=== PATIENT | male | born 1950 | race Caucasian/White ===

== ENCOUNTER 2017-12-23 05:50 | Inpatient (IN) | payer MEDICARE, BC ==
[2017-12-23] MEDS ORDERED: Albuterol/Ipratropium 3.0-0.5 MG/3 ML Neb Soln NEB ONE (06:00)
[2017-12-23] MEDS ORDERED: Sodium Chloride 0.9% 10 ML Syringe FLUSH PRN (06:04)
[2017-12-23] MEDS ORDERED: Ciprofloxacin in D5W 400 MG in Premix Bag 1 BAG IV ONE ×2 (06:04)
[2017-12-23] MEDS ORDERED: Piperacillin/Tazobactam 4.5 GM in Sodium Chloride 0.9% 100 ML IV ONE (06:04)
[2017-12-23] MEDS ORDERED: methylPREDNISolone Sodium Succinate 125 MG/2 ML SDV IVPUSH ONE (06:11)
[2017-12-23] MEDS ORDERED: Sodium Chloride 0.9% 1,000 ML IV SCH (06:15)
[2017-12-23 06:55] LABS: CHLORIDE,CL 101 mmol/L (98-107); SODIUM,NA 135 mmol/L (136-145)
--- NOTE | 2017-12-23 06:59 | EDM.PDOC ---
ED HPI GENERAL MEDICAL PROBLEM - General Chief Complaint: Respiratory Problem Stated Complaint: Coughing, SOB, fever Time Seen by Provider: 12/23/17 06:00 Source of Information: Reports: Patient, Family History Limitations: Reports: No Limitations - History of Present Illness INITIAL COMMENTS - FREE TEXT/NARRATIVE: Please use ER note for admission H and P Patient presents with complaints of coughing all night and increasing coughing and shortness of breath over the last couple of days. He states he saw Dr. Fely Guillen on Thursday with complaints of a sore right foot. He was told this was likely gout. He has had fevers, chills, coughing. He denies chest pain. No headache, change in LOC, no abdominal pain. His foot has had increased swelling. He is producing sputum with his cough. He states he is not getting better. Onset: Gradual Duration: Getting Worse Location: Reports: Chest Quality: Reports: Ache Severity: Moderate Improves with: Reports: None Associated Symptoms: Reports: Cough, cough w sputum, Fever/Chills, Shortness of Breath - Related Data Allergies Allergy/AdvReac Type Severity Reaction Status Date / Time Penicillins Allergy Unknown Hives Verified 10/12/17 08:33 lisinopril AdvReac Unknown Cough Verified 10/12/17 08:33 Home Meds: Home Meds Losartan Potassium 25 mg PO DAILY 10/20/14 [History] Albuterol [IJD: Ventolin HFA] 1 - 2 puff INH Q4H PRN 05/20/16 [History] Metoprolol Succinate [Toprol XL 100mg] 100 mg PO DAILY 05/20/16 [History] Furosemide [Lasix] 20 mg PO DAILY #30 tablet 05/22/16 [Rx] Omeprazole Magnesium [Prilosec Otc] 20 mg PO DAILY 10/12/17 [History] Tiotropium Br/Olodaterol HCl [Stiolto Respimat Inhal [place]] 2 puff PO DAILY [History] Warfarin [Coumadin] 7.5 - 10 mg PO ASDIRECTED 10/12/17 [History] Albuterol [IJD: Albuterol] 2.5 mg NEB Q4HRRT PRN #30 nebule 10/14/17 [Rx] Azithromycin [Zithromax] 500 mg PO DAILY #3 tablet 12/20/17 [Rx] Cefuroxime [Ceftin] 250 mg PO BID #6 tablet 10/14/17 [Rx] Magnesium Oxide 400 mg PO BID #60 tablet 10/14/17 [Rx] Warfarin [Coumadin] 7.5 mg PO BEDTIME #30 tablet 10/14/17 [Rx] guaiFENesin [Mucinex] 600 mg PO BID #30 tab.er 10/14/17 [Rx] predniSONE 20 mg PO DAILY #5 tablet 10/14/17 [Rx] Past Medical History HEENT History: Reports: Hard of Hearing, Impaired Vision Other HEENT History: Wears hearing aides and glasses Cardiovascular History: Reports: Afib, Cardiomyopathy, Heart Failure, Heart Valve Replacement, Hypertension, Pulmonary Hypertension Respiratory History: Reports: COPD, SOB Gastrointestinal History: Reports: GI Bleed Genitourinary History: Reports: Acute Renal Failure Musculoskeletal History: Reports: Arthritis Psychiatric History: Reports: None Hematologic History: Reports: Other (See Below) Other Hematologic History: History of Leukemia with stem cell transplant in 2008 Oncologic (Cancer) History: Reports: Leukemia - Infectious Disease History Infectious Disease History: Reports: Chicken Pox - Past Surgical History Head Surgeries/Procedures: Reports: None Musculoskeletal Surgical History: Reports: None Oncologic Surgical History: Reports: None Social & Family History - Family History Family Medical History: Noncontributory - Tobacco Use Smoking Status *Q: Former Smoker Years of Tobacco use: 18 Packs/Tins Daily: 1 Used Tobacco, but Quit: Yes Month Tobacco Last Used: 1992 Second Hand Smoke Exposure: No - Caffeine Use Caffeine Use: Reports: Coffee, Soda - Alcohol Use Days Per Week of Alcohol Use: 7 Number of Drinks Per Day: 1 Total Drinks Per Week: 7 - Recreational Drug Use Recreational Drug Use: No Drug Use in Last 12 Months: No ED ROS GENERAL - Review of Systems Review Of Systems: See Below Constitutional: Reports: Fever, Chills HEENT: Reports: No Symptoms Respiratory: Reports: Shortness of Breath, Wheezing, Cough, Sputum Cardiovascular: Reports: Dyspnea on Exertion, Edema Endocrine: Reports: No Symptoms GI/Abdominal: Reports: No Symptoms : Reports: No Symptoms Musculoskeletal: Reports: No Symptoms Skin: Reports: No Symptoms Neurological: Reports: No Symptoms Psychiatric: Reports: No Symptoms Hematologic/Lymphatic: Reports: No Symptoms Immunologic: Reports: No Symptoms ED EXAM, GENERAL - Physical Exam Exam: See Below Exam Limited By: No Limitations General Appearance: Alert, WD/WN, No Apparent Distress Eye Exam: Bilateral Eye: EOMI, PERRL Ears: Normal TMs Nose: Normal Inspection, Normal Mucosa, No Blood Throat/Mouth: Normal Inspection, Normal Lips, Normal Teeth, Normal Gums, Normal Oropharynx, Normal Voice, No Airway Compromise Head: Atraumatic, Normocephalic Neck: Normal Inspection, Supple, Non-Tender, Full Range of Motion Respiratory/Chest: No Respiratory Distress, Lungs Clear, Normal Breath Sounds, No Accessory Muscle Use, Chest Non-Tender Cardiovascular: Normal Peripheral Pulses, Regular Rate, Rhythm, No Edema, No Gallop, No JVD, No Murmur, No Rub, Other (left subclavian pacemaker) Peripheral Pulses: 2+: Posterior Tibial (L), Posterior Tibial (R), Dorsalis Pedis (L), Dorsalis Pedis (R) GI/Abdominal: Normal Bowel Sounds Back Exam: Normal Inspection, Full Range of Motion, NT Extremities: Normal Inspection, Normal Range of Motion, Non-Tender, Normal Capillary Refill, No Pedal Edema Neurological: Alert, Oriented, CN II-XII Intact, Normal Cognition, Normal Gait, Normal Reflexes, No Motor/Sensory Deficits Psychiatric: Normal Affect, Normal Mood Skin Exam: Warm, Dry, Intact, Normal Color, No Rash Lymphatic: No Adenopathy Course - Orders/Labs/Meds Orders: Active Orders 24 hr Category Date Time Status Patient Status [ADT] Routine ADT 12/23/17 06:38 Ordered RT Aerosol Therapy [RC] ASDIRECTED Care 12/23/17 06:00 Ordered Chest 1V Frontal [CR] Stat Exams 12/23/17 06:01 Ordered BLOOD GAS ARTERIAL [BG] Stat Lab 12/23/17 06:04 Ordered C-REACTIVE PROTEIN [CHEM] Stat Lab 12/23/17 06:01 Ordered CBC WITH AUTO DIFF [HEME] Stat Lab 12/23/17 06:01 Ordered COMPREHENSIVE METABOLIC PN,CMP [CHEM] Stat Lab 12/23/17 06:01 Ordered CULTURE BLOOD [BC] Stat Lab 12/23/17 06:06 Ordered CULTURE BLOOD [BC] Stat Lab 12/23/17 06:06 Ordered LACTIC ACID [CHEM] Stat Lab 12/23/17 06:01 Ordered TROPONIN I [CHEM] Stat Lab 12/23/17 06:04 Ordered URIC ACID [CHEM] Stat Lab 12/23/17 06:04 Ordered URINALYSIS W/MICROSCOPIC [UA W/MICROSCOPIC] [URIN] Stat Lab 12/23/17 06:01 Ordered Ciprofloxacin in D5W [Cipro in D5W 400 MG/200 ML] 400 Med 12/23/17 06:04 Ordered mg Premix Bag 1 bag IV ONETIME Sodium Chloride 0.9% @ 100 MLS/HR(1000ml) Med 12/23/17 06:15 Ordered Sodium Chloride 0.9% [Normal Saline] 1,000 ml IV ASDIRECTED Sodium Chloride 0.9% [Saline Flush] Med 12/23/17 06:04 Ordered 10 ml FLUSH ASDIRECTED PRN Vancomycin 1,500 mg Med 12/23/17 06:04 Ordered Sodium Chloride 0.9% [Normal Saline] 250 ml IV ONETIME Blood Culture x2 Reflex Set [OM.PC] Stat Oth 12/23/17 06:04 Ordered Saline Lock Insert [OM.PC] Routine Oth 12/23/17 06:04 Ordered Medication Orders Ciprofloxacin/Dextrose 400 mg/ (Premix) 200 mls @ 200 mls/hr IV ONETIME ONE Stop: 12/23/17 07:03 Sodium Chloride (Normal Saline) 1,000 mls @ 100 mls/hr IV ASDIRECTED ALONSO Vancomycin HCl 1,500 mg/ (Sodium Chloride) 250 mls @ 167 mls/hr IV ONETIME ONE Stop: 12/23/17 07:33 Sodium Chloride (Saline Flush) 10 ml FLUSH ASDIRECTED PRN PRN Reason: Keep Vein Open Meds: Medications Generic Name Dose Route Start Last Admin Trade Name Freq PRN Reason Stop Dose Admin Ciprofloxacin/Dextrose 400 mg/ 200 mls @ 200 mls/hr 12/23/17 06:04 Premix IV 12/23/17 07:03 ONETIME ONE Sodium Chloride 1,000 mls @ 100 mls/hr 12/23/17 06:15 Normal Saline IV ASDIRECTED ALONSO Vancomycin HCl 1,500 mg/ 250 mls @ 167 mls/hr 12/23/17 06:04 Sodium Chloride IV 12/23/17 07:33 ONETIME ONE Sodium Chloride 10 ml 12/23/17 06:04 Saline Flush FLUSH ASDIRECTED PRN Keep Vein Open Discontinued Medications Generic Name Dose Route Start Last Admin Trade Name Freq PRN Reason Stop Dose Admin Albuterol/Ipratropium 3 ml 12/23/17 06:00 12/23/17 06:15 Duoneb 3.0-0.5 Mg/3 Ml NEB 12/23/17 06:01 3 ml ONETIME ONE Administration Piperacillin Sod/Tazobactam 100 mls @ 200 mls/hr 12/23/17 06:04 Sod 4.5 gm/ Sodium Chloride IV 12/23/17 06:33 ONETIME ONE Methylprednisolone Sodium Succinate 125 mg 12/23/17 06:11 Solu-Medrol IVPUSH 12/23/17 06:12 ONETIME ONE Departure - Departure Disposition: Home, Self-Care 01 - Discharge Information - Problem List & Annotations (1) COPD with exacerbation SNOMED Code(s): 211477414 Code(s): J44.1 - CHRONIC OBSTRUCTIVE PULMONARY DISEASE W (ACUTE) EXACERBATION Status: Acute Priority: Medium Current Visit: Yes (2) CAP (community acquired pneumonia) SNOMED Code(s): 858654587 Code(s): J18.9 - PNEUMONIA, UNSPECIFIED ORGANISM Status: Acute Priority: Medium Current Visit: No Qualifiers: Laterality: right Lung location: lower lobe of lung Qualified Code(s): J18.1 - Lobar pneumonia, unspecified organism - Problem List Review Problem List Initiated/Reviewed/Updated: Yes - My Orders Last 24 Hours: My Active Orders 12/23/17 06:00 RT Aerosol Therapy [RC] ASDIRECTED 12/23/17 06:01 Chest 1V Frontal [CR] Stat C-REACTIVE PROTEIN [CHEM] Stat CBC WITH AUTO DIFF [HEME] Stat COMPREHENSIVE METABOLIC PN,CMP [CHEM] Stat LACTIC ACID [CHEM] Stat URINALYSIS W/MICROSCOPIC [UA W/MICROSCOPIC] [URIN] Stat 12/23/17 06:04 BLOOD GAS ARTERIAL [BG] Stat TROPONIN I [CHEM] Stat URIC ACID [CHEM] Stat Ciprofloxacin in D5W [Cipro in D5W 400 MG/200 ML] 400 mg Premix Bag 1 bag IV ONETIME Sodium Chloride 0.9% [Saline Flush] 10 ml FLUSH ASDIRECTED PRN Vancomycin 1,500 mg Sodium Chloride 0.9% [Normal Saline] 250 ml IV ONETIME Blood Culture x2 Reflex Set [OM.PC] Stat Saline Lock Insert [OM.PC] Routine 12/23/17 06:06 CULTURE BLOOD [BC] Stat CULTURE BLOOD [BC] Stat 12/23/17 06:15 Sodium Chloride 0.9% @ 100 MLS/HR(1000ml) Sodium Chloride 0.9% [Normal Saline] 1 ,000 ml IV ASDIRECTED 12/23/17 06:38 Patient Status [ADT] Routine - Assessment/Plan Last 24 Hours: My Active Orders 12/23/17 06:00 RT Aerosol Therapy [RC] ASDIRECTED 12/23/17 06:01 Chest 1V Frontal [CR] Stat C-REACTIVE PROTEIN [CHEM] Stat CBC WITH AUTO DIFF [HEME] Stat COMPREHENSIVE METABOLIC PN,CMP [CHEM] Stat LACTIC ACID [CHEM] Stat URINALYSIS W/MICROSCOPIC [UA W/MICROSCOPIC] [URIN] Stat 12/23/17 06:04 BLOOD GAS ARTERIAL [BG] Stat TROPONIN I [CHEM] Stat URIC ACID [CHEM] Stat Ciprofloxacin in D5W [Cipro in D5W 400 MG/200 ML] 400 mg Premix Bag 1 bag IV ONETIME Sodium Chloride 0.9% [Saline Flush] 10 ml FLUSH ASDIRECTED PRN Vancomycin 1,500 mg Sodium Chloride 0.9% [Normal Saline] 250 ml IV ONETIME Blood Culture x2 Reflex Set [OM.PC] Stat Saline Lock Insert [OM.PC] Routine 12/23/17 06:06 CULTURE BLOOD [BC] Stat CULTURE BLOOD [BC] Stat 12/23/17 06:15 Sodium Chloride 0.9% @ 100 MLS/HR(1000ml) Sodium Chloride 0.9% [Normal Saline] 1 ,000 ml IV ASDIRECTED 12/23/17 06:38 Patient Status [ADT] Routine Assessment:: right lower lobe pneumonia copd exacerbation Plan: pneumonia continue iv antibiotics continue iv steroid continue nebulized medications copd exacerbation continue iv steroid continue iv antibiotics continue hydration
[2017-12-23] MEDS ORDERED: Acetaminophen 325 MG Tab PO PRN (07:59)
[2017-12-23] MEDS ORDERED: Albuterol 0.083% 2.5 MG/3 ML Neb Soln NEB SCH (08:00)
[2017-12-23] MEDS ORDERED: Albuterol/Ipratropium 3.0-0.5 MG/3 ML Neb Soln NEB PRN (08:07)
[2017-12-23] MEDS: cefTRIAXone 1 GM Vial IVPUSH SCH (09:17)
[2017-12-23] MEDS: Azithromycin 500 MG in Sodium Chloride 0.9% 250 ML IV SCH (09:18)
[2017-12-23] MEDS: Magnesium Oxide 400 MG Tab PO SCH ×2 (09:18→19:52)
[2017-12-23] MEDS: methylPREDNISolone Sodium Succinate 40 MG/1 ML SDV IVPUSH SCH ×2 (09:18→19:49)
[2017-12-23] MEDS: Metoprolol Succinate 50 MG Tab.ER PO SCH (09:18)
[2017-12-23] MEDS: guaiFENesin 600 MG Tab.ER PO SCH ×2 (09:18→19:52)
[2017-12-23] MEDS ORDERED: Acetaminophen/oxyCODONE 325-5 MG Tab PO PRN (09:20)
[2017-12-23] MEDS: Albuterol/Ipratropium 3.0-0.5 MG/3 ML Neb Soln NEB SCH ×3 (10:47→19:52)
--- NOTE | 2017-12-23 14:33 | HP ---
CHIEF COMPLAINT: Cough and shortness of breath. HISTORY OF PRESENT ILLNESS: This is a 67-year-old male with known history of COPD and heart failure, who is actually in the clinic 2 days ago, but that was due to a left foot pain. He was also coughing at that point, even coughing up some pink sputum, but chest x-ray was not showing any pneumonia. He was not feeling much of a fever, but did have a 101 temp at one point in the clinic. The patient had a painful left foot and ankle, not able to put weight on it, getting worse since around 12/18. His uric acid was over 10. His white count was mildly elevated around 11. He has had pseudogout previously. We did treat him his gout, put him on 20 mg of prednisone daily, and he says the foot felt much better yesterday. He could move it more. I feel the redness is even better today. We did not give him any antibiotics. He did not have any other joints that were involved. He states now when he coughs, he is just not able to get things up. His temperature was 101.3 when he arrived in the ER. His sats were in the 80s. He tried his nebulizer at home and it was not helping, therefore his brought him to the emergency room. While in the emergency room, his white count was found to be 13.5; on previous admissions, he has been up over 24,000. His O2 on ABGs was 63. He is not chronically on oxygen at home. He is supposed to use it at night. Otherwise creatinine through the clinic earlier this week was 1.33. His A1c was 6.9. He has been borderline for diabetes and now has moved into diabetes range, but is on no medications. ALLERGIES: Penicillin causes hives, although he got a dose of Zosyn in the ER and tolerated it. He also got vanco in the ER. Lisinopril causes a cough. His other medications are listed. He takes Coumadin 7.5 mg daily and 10 mg on Fridays. He recently has been taking the Percocet for the ankle pain. His script was actually left over from 2013. He was started on prednisone 20 mg daily for 7 days on 12/21. He has an albuterol inhaler as needed. He also has nebs at home. He is on Lasix 20 mg daily, Cozaar 25 mg at night, Stiolto daily and metoprolol 100 mg daily. PAST MEDICAL HISTORY: 1. 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 2. Chronic systolic heart failure with EF, [place] Heart Association class 3 with EF down to 35% and a left bundle branch block, so he had resynchronization therapy and ICD placement on 11/26/2017 at [facility]. He is felt to have nonischemic cardiomyopathy. 3. Remote history of aortic valve replacement in 2014, bioprosthetic. 4. Paroxysmal atrial fibrillation, that is why he is on Coumadin. 5. Chronic obstructive pulmonary disease, moderate with previous exacerbations, last was in 09/2017. He did go home on Ceftin and Zithromax and improved. 6. Previous pseudogout in the right knee, status post drainage on that. He has also had a meniscal tear in that knee. 7. Essential hypertension, controlled on medications. SOCIAL HISTORY: The patient is a nonsmoker, did quit smoking back in 1992. He lives at home with his . He does drink about 2 drinks of whiskey per day. He is a vásquez. PAST SURGICAL HISTORY: Surgically, he has had a tonsillectomy, splenectomy, and bone marrow transplant. FAMILY HISTORY: Mother is alive with macular degeneration. Father had diabetes and a heart attack. Brother is alive, who has prostate cancer and has had a heart attack. Another brother had high cholesterol and heart attack. Sister had arthritis. REVIEW OF SYSTEMS: General: There has been no weight gain or weight loss, but he has had some fever and chills. HEENT: No sore throat. Cardiac: No orthopnea. No bilateral leg swelling. Respiratory: He has not had any chest pain, but he has felt more short of breath, but he describes it more as a cough. He has not been wheezing. Abdomen: No nausea, vomiting, diarrhea. : No dysuria. MUSCULOSKELETAL: He has had the left foot and ankle pain with some redness, but he is moving it. He is feeling better today with the treatment that was given for gout with prednisone. Otherwise, all systems reviewed and found to be negative unless otherwise stated. PHYSICAL EXAMINATION: Vital Signs: Includes a temperature currently 98.2, but he had a T-max of 101.3 at 5:50 a.m., heart rate 105, blood pressure 131/97, respiratory rate 26, O2 95% on 2 L. General: He is in no acute distress. Heart: Regular rate and rhythm with murmur noted. Respiratory: Lungs sounds are decreased over the right base with some rhonchi, otherwise mostly clear on the left with no wheezing. Abdomen: Nondistended, soft, nontender. Extremities: Warm and dry. He has no edema over the right leg. He does have just trace edema to the left ankle. There is some redness now only on the foot with minor warmth. It is overall improved from Thursday. Otherwise, there is no JVD. Psych: His mood is normal. No depression, anxiety. Neurologic: He is not confused. Gait: He does have some pain with transferring when putting weight on that left foot. LABORATORY WORK: Showed him again the white count of 13.5, hemoglobin 12.9, platelets 348. INR 2.1, CO2 32, PO2 63. Sodium 135, potassium 4.1, chloride 101, bicarb 25, BUN 29, creatinine 1.7, glucose 124, uric acid was 10, magnesium 1.7, AST 26, ALT 28. CRP 10.9. ProBNP 3980, a few years ago was 3869, but down from 4769 on previous clinic visits for COPD. His UA did show 5-10 rbcs. ASSESSMENT AND PLAN: 1. Acute hypoxic respiratory failure secondary to a right lower lobe pneumonia. 2. Sepsis secondary to a right lower lobe pneumonia. 3. Chronic obstructive pulmonary disease exacerbation with a right lower lobe pneumonia. Blood cultures have been sent. He was given vanco, Zosyn and Cipro already through the ER. At this point, we will switch him over to community-acquired pneumonia treatments of Rocephin and Zithromax. He has had blood cultures already through the clinic on Thursday that have been negative. Those were due more to the concern for the left ankle, although I do not think this was an infection. We will keep him on Solu-Medrol 40 mg twice daily, scheduled albuterol nebs but p.r.n. DuoNeb as I did also order his Stiolto. If that is not available, I will probably schedule the DuoNeb. 4. Chronic systolic heart failure. This seems to be stable. We will add on a proBNP. I do not think his cough is from an exacerbation of that, but certainly we will monitor closely. I will stop his IV fluids as he already did get at least half a liter. 5. Mild renal insufficiency with some hematuria on UA. We will repeat lab work tomorrow. This could be related to sepsis. 6. Mild hypomagnesemia. He is on oral replacement. 7. Paroxysmal atrial fibrillation. He is on Coumadin. We will continue his home doses. We will repeat an INR in the next day or 2 as it is quite stable at 2.1 today. 8. Diabetes, recently diagnosed, likely will have hyperglycemia due to steroids. We will do q.i.d. Accu-Cheks. Start insulin if needed. 9. Recent gout. This will be more than covered by the Solu-Medrol, so we will hold his oral prednisone. 10.Remote history of AML. He does have mild anemia. We will repeat CBC tomorrow. PLAN: At this point, the patient will be admitted for acute cares with IV antibiotics, Rocephin, Zithromax and IV steroids. We will follow a sputum culture. I also ordered him for influenza testing. We will place him on telemetry. We will do in's and out's and daily weights. Monitor labs. He is code level 1. For DVT prophylaxis, he systemically anticoagulated with Coumadin. MKA: 12/23/2017 09:32:49 MODL: 12/23/2017 14:20:05 /[id number]
[2017-12-23] MEDS: Insulin Detemir 100 Units/ML 3 ML Pen SUBCUT SCH (19:52)
[2017-12-23] MEDS: Warfarin 2.5 MG Tab PO SCH (19:52)
[2017-12-24] MEDS: Albuterol 0.083% 2.5 MG/3 ML Neb Soln NEB PRN (00:25)
[2017-12-24] MEDS: Albuterol/Ipratropium 3.0-0.5 MG/3 ML Neb Soln NEB SCH ×4 (07:04→20:21)
[2017-12-24] MEDS ORDERED: OLODATEROL PO SCH (08:00)
[2017-12-24] MEDS ORDERED: [UNRECOGNIZED DRUG - OTHER] PO SCH (08:00)
[2017-12-24] MEDS ORDERED: Azithromycin 500 MG in Sodium Chloride 0.9% 250 ML IV ONE ×2 (08:36→09:33)
[2017-12-24] MEDS: methylPREDNISolone Sodium Succinate 40 MG/1 ML SDV IVPUSH SCH ×2 (08:39→20:21)
[2017-12-24] MEDS: guaiFENesin 600 MG Tab.ER PO SCH ×2 (08:40→20:22)
[2017-12-24] MEDS: Magnesium Oxide 400 MG Tab PO SCH ×2 (08:40→20:22)
[2017-12-24] MEDS: Metoprolol Succinate 50 MG Tab.ER PO SCH (08:40)
[2017-12-24] MEDS: cefTRIAXone 1 GM Vial IVPUSH SCH (09:11)
--- NOTE | 2017-12-24 09:43 | PN ---
Progress Note for NICOLASA MANUEL Date: 12/24/2017 Room #: VM.204 SUBJECTIVE: Hospital day #2 on a 67-year-old admitted for right lower lobe pneumonia and a COPD exacerbation. The patient states he is feeling better. His breathing is better. He is off oxygen at rest at 90%, but has not been up moving around. He is not having any pain. His left foot is much better. He has been afebrile now since admission, but does get into coughing fits and then he gets short of breath. He states he coughs until he gets something up. His sputum culture was rejected. His influenza testing was negative. Otherwise, he has been on IV Solu-Medrol. He has been on IV Rocephin and Zithromax. OBJECTIVE: Vital Signs: His temperature is 98, weight 242 pounds, pulse 67, blood pressure 104/62, respiratory rate 18, and O2 95% on 3 L. General: He is in no acute distress. Heart: Regular rate and rhythm with murmur. Respiratory: Lungs sounds are clear to auscultation over the left lung, but decreased with expiratory wheezing and rhonchi in the right base. Mental Status: He is alert and orientated x3. GI: Otherwise, his abdomen is soft and nontender. Extremities: Warm and dry. No edema. In the left foot, the redness has nearly resolved. He has no pain to palpation. He has good ankle range of motion. LABORATORY DATA: Lab work does show white count went up to 19.8. He was on IV Solu-Medrol 125 through the ER. Hemoglobin 12.6 and platelets 349. Sodium 137, potassium 4.8, chloride 103, bicarb 25, BUN 27, creatinine 1.3, glucose 186, and calcium 8.5. ASSESSMENT AND PLAN: 1. Sepsis due to community-acquired pneumonia, right lower lobe, improving. We will continue to wean oxygen. We will get him up with activity, see how he does without it. We will do another x-ray today. We will continue IV Rocephin and Zithromax, last doses were given this morning, and then switch him over to orals. 2. Acute hypoxic respiratory failure secondary to right lower lobe pneumonia, improving. 3. Right lower lobe pneumonia. Sputum culture was an inadequate sample. Blood cultures are negative. At this point, we will not collect a sputum sample as he has been on IV antibiotics. 4. Chronic obstructive pulmonary disease with exacerbation due to pneumonia. We will continue the scheduled nebs. We will continue IV Solu-Medrol 40 mg twice daily. 5. Chronic systolic heart failure, stable without exacerbation. 6. Mild renal insufficiency, improved, creatinine down to 1.3. He did get some small doses of IV fluids yesterday. 7. Mild hypomagnesemia, on oral replacement. We will repeat tomorrow. 8. Paroxysmal atrial fibrillation, on Coumadin. We will repeat an INR tomorrow. 9. Newly-diagnosed diabetes, diet controlled, without complications. We did start low-dose insulin due to steroids causing hyperglycemia. I do not anticipate him needing to go home on any medications for this. 10.Recent gout, resolving. 11.Remote history of acute myeloid leukemia. The plan at this point, we will discontinue telemetry as it is just showing paced rhythms. We will finish one more dose of IV Zithromax and Rocephin, and switch over to orals most likely tomorrow. We will continue the IV steroids. We will repeat an x-ray today. We will get him up and working with therapies and see how his oxygen levels do with activity. Anticipate discharge home tomorrow. NADJAA: 12/24/2017 08:43:59 MODL: 12/24/2017 09:04:27 /[id number]
[2017-12-24] MEDS: Azithromycin 500 MG in Sodium Chloride 0.9% 250 ML IV SCH (11:11)
[2017-12-24] MEDS ORDERED: Furosemide 20 MG Tab PO ONE (12:29)
[2017-12-24] MEDS: Warfarin 2.5 MG Tab PO SCH (20:22)
[2017-12-24] MEDS: Insulin Detemir 100 Units/ML 3 ML Pen SUBCUT SCH (20:23)
[2017-12-25] MEDS: Albuterol 0.083% 2.5 MG/3 ML Neb Soln NEB PRN ×2 (00:49→16:55)
[2017-12-25] MEDS: Albuterol/Ipratropium 3.0-0.5 MG/3 ML Neb Soln NEB SCH ×4 (07:08→21:09)
[2017-12-25 07:22] LABS: CHLORIDE,CL 103 mmol/L (98-107); SODIUM,NA 138 mmol/L (136-145)
[2017-12-25] MEDS: cefTRIAXone 1 GM Vial IVPUSH SCH (08:21)
[2017-12-25] MEDS: methylPREDNISolone Sodium Succinate 40 MG/1 ML SDV IVPUSH SCH ×2 (08:23→21:10)
[2017-12-25] MEDS: Magnesium Oxide 400 MG Tab PO SCH ×2 (08:29→21:09)
[2017-12-25] MEDS: guaiFENesin 600 MG Tab.ER PO SCH ×2 (08:29→21:09)
[2017-12-25] MEDS: Metoprolol Succinate 50 MG Tab.ER PO SCH (08:30)
[2017-12-25] MEDS: Azithromycin 250 MG Tab PO SCH (08:30)
[2017-12-25] MEDS: Furosemide 20 MG Tab PO SCH (09:53)
[2017-12-25] MEDS ORDERED: Warfarin 5 MG Tab PO SCH (20:00)
[2017-12-25] MEDS: Insulin Detemir 100 Units/ML 3 ML Pen SUBCUT SCH (21:08)
--- NOTE | 2017-12-25 21:48 | PN ---
Progress Note for NICOLASA MANUEL Date: 12/25/2017 Room #: VM.204 SUBJECTIVE: This is hospital day #2 on a 67-year-old, admitted with a right lower lobe pneumonia and a COPD exacerbation. He had recently been in the clinic and treated with prednisone for gout. He had a normal chest x-ray, but he continued to have cough and fevers. Since admission now, he has been afebrile, but this morning he is coughing more, he is coughing up some pink frothy sputum. He is on Coumadin. His INR is therapeutic at 2.6. Otherwise, his white count continues to be elevated, but he has been on IV Solu-Medrol. He feels less short of breath unless he is having coughing. He was off oxygen most of the day yesterday, but is back on it. He did require it when he was walking. The patient has no chest pain. OBJECTIVE: VITAL SIGNS: His temperature is 98.8, pulse 100, blood pressure 144/90, respiratory rate 20, and O2 of 94% on room air. GENERAL: He is in no acute distress. HEART: Regular rate and rhythm with murmur. LUNGS: Lung sounds are decreased over the right base with crackles noted. Left lung is clear. ABDOMEN: Has positive bowel sounds. It is soft and nontender. EXTREMITIES: Warm and dry. No edema. LABORATORY DATA: Lab work today does show white count still 20.7, hemoglobin 12.9, and platelets 404. Sodium 138, potassium 4.7, chloride 103, bicarb 27, BUN 27, creatinine 1.2, INR 2.6, glucose 141, and magnesium 2.2 now dictating. ASSESSMENT AND PLAN: 1. Sepsis due to community-acquired pneumonia, right lower lobe. Blood cultures have been negative. They resubmitted a sputum culture today and it is pending. 2. Acute hypoxic respiratory failure due to right lower lobe pneumonia and chronic obstructive pulmonary disease exacerbation. 3. Chronic obstructive pulmonary disease with exacerbation, improving on nebs and IV Solu-Medrol. 4. Chronic systolic heart failure, stable without exacerbation. Chest x-ray repeated yesterday, was showing some question of increased fluid. He was restarted on his oral Lasix. 5. Mild renal insufficiency. Creatinine improved down to 1.2. 6. Hypomagnesemia, replaced orally. 7. Paroxysmal atrial fibrillation. He is on Coumadin. 8. Newly diagnosed diabetes, diet controlled, with hyperglycemia due to steroids. At this point, the plan would be to continue him on insulin 6 units, but he would not go home with insulin as he will be on less Prednisone on discharge. He will follow up with the medical educator. 9. Recent gout to the left foot, resolving. 10.Remote history of AML. PLAN: At this point, the patient will continue acute cares. He is on oral Zithromax and IV Rocephin, now day #3. We will continue IV Solu-Medrol. We did a home oxygen test today and he will go home on 2 L at all times. Paperwork was sent off to [facility]. He will have lab work again in the morning including an INR due to his mild hemoptysis, but his sputum is more pink-tinged than bloody and it is small amounts. We will continue him on nebulizers, he has those available at home as well. Medications were already sent off to his local drug store to complete a course of Ceftin and prednisone. NELI: 12/25/2017 20:11:14 MODL: 12/25/2017 21:39:43 /[id number]
[2017-12-26] MEDS: Albuterol/Ipratropium 3.0-0.5 MG/3 ML Neb Soln NEB SCH ×2 (07:10→10:36)
[2017-12-26] MEDS: cefTRIAXone 1 GM Vial IVPUSH SCH (07:23)
[2017-12-26] MEDS: methylPREDNISolone Sodium Succinate 40 MG/1 ML SDV IVPUSH SCH (07:23)
[2017-12-26] MEDS: Magnesium Oxide 400 MG Tab PO SCH (07:24)
[2017-12-26] MEDS: Furosemide 20 MG Tab PO SCH (07:24)
[2017-12-26] MEDS: guaiFENesin 600 MG Tab.ER PO SCH (07:24)
[2017-12-26] MEDS: Azithromycin 250 MG Tab PO SCH (07:24)
[2017-12-26] MEDS: Metoprolol Succinate 50 MG Tab.ER PO SCH (07:25)
[2017-12-26 09:28] VITALS: BP 127/90
--- NOTE | 2017-12-27 09:09 | DISCH ---
FINAL DIAGNOSES: 1. Sepsis due to community-acquired pneumonia, right lower lobe. Blood cultures negative. Sputum culture normal carlo. 2. Community-acquired pneumonia - improved. 3. Acute hypoxic respiratory failure due to right lower lobe pneumonia and chronic obstructive pulmonary disease. 4. Chronic obstructive pulmonary disease - exacerbation - improved. 5. Chronic systolic heart failure, stable without exacerbation. 6. Mild renal insufficiency - resolved. 7. Hypomagnesemia - replenished orally. 8. Paroxysmal atrial fibrillation - on Coumadin. 9. Diabetes mellitus, diet controlled, mainly with hyperglycemia secondary to the steroids. 10.Recent gout, left foot - resolved. HISTORY AND HOSPITAL COURSE: This is a 67-year-old, white male, who presented to the emergency room the day of admission with cough and increasing shortness of breath. He has been having fevers and chills. No chest pain, just increased shortness of breath. He was admitted to acute care status under the care of Dr. Fely Guillen, was initially placed on Solu-Medrol. He was given ciprofloxacin, vancomycin in the emergency room, and also Zosyn in the emergency room. On the floor, he was placed on Rocephin and Zithromax to cover his pneumonia and once the blood cultures were negative, the IV antibiotics were discontinued. He was placed on nebulizers, kept on his home medications, and continued on IV Solu-Medrol. His condition improved. His cough improved, he is less short of breath, but not quite back to baseline. He was having some pink frothy sputum, felt secondary to his Coumadin. His INR was 2.6, stable. He did have a persistent O2 requirement, is being discharged on 2 L nasal cannula O2 at home. He is feeling better today. He is stable for discharge. PHYSICAL EXAMINATION: Heart: Unremarkable. Lungs: Diminished but otherwise clear. Extremities: Warm and dry. No edema. LABORATORY DATA: From this morning, his white count is 15.6, hemoglobin 13.3, INR is 2.3, potassium 5.2, creatinine 1.3. CONDITION ON DISCHARGE: Improved. DISCHARGE MEDICATIONS: Ceftin 500 mg q.12 hours for additional 4 days, albuterol nebulizer q.4 hours as needed, magnesium 400 mg daily, Percocet 325/5 1 q.4 hours p.r.n., albuterol inhaler q.4 hours p.r.n., Zithromax 500 mg 1 dose on Thursday only to complete 5 day course of therapy; prednisone 20 mg daily for 5 days and then as directed after that; Lasix 20 mg daily, losartan 25 mg daily, metoprolol 100 mg daily, Stiolto 2 puffs daily, Coumadin as directed. FOLLOWUP: Follow up with Dr. Fely Guillen as directed. It should be when he returns from [place] after Easter. [place] to provide home O2 at 2 L nasal cannula. Home instructions given. Call or return if problems persist. Duration of discharge evaluation greater than 30 minutes. FM: 12/26/2017 10:46:24 MODL: 12/27/2017 09:02:02 /[id number]
== END 2017-12-26 10:50 | disposition home or self-care (01) | DRG 871 ==
LOC: VM.ED 05:50 → VM.MS 06:38 → OBSVTOIN 07:51
PROVIDERS: ADMIT Internal Medicine; ATTEND Internal Medicine
DX: A41.9 Sepsis, unspecified organism (principal); J18.9 Pneumonia, unspecified organism; J96.01 Acute respiratory failure with hypoxia; J44.0 Chronic obstructive pulmonary disease with (acute) lower respiratory infection; I48.91 Unspecified atrial fibrillation; J44.1 Chronic obstructive pulmonary disease with (acute) exacerbation; I50.22 Chronic systolic (congestive) heart failure; Z87.891 Personal history of nicotine dependence; I50.9 Heart failure, unspecified; I11.0 Hypertensive heart disease with heart failure; N28.9 Disorder of kidney and ureter, unspecified; E83.42 Hypomagnesemia; I48.0 Paroxysmal atrial fibrillation; Z79.01 Long term (current) use of anticoagulants; Z95.2 Presence of prosthetic heart valve; E11.65 Type 2 diabetes mellitus with hyperglycemia; M10.9 Gout, unspecified; D64.9 Anemia, unspecified; Z85.6 Personal history of leukemia; M19.90 Unspecified osteoarthritis, unspecified site; H54.7 Unspecified visual loss; H91.93 Unspecified hearing loss, bilateral; Z88.0 Allergy status to penicillin; Z88.8 Allergy status to other drugs, medicaments and biological substances; Z79.899 Other long term (current) drug therapy
CPT/HCPCS: 36415; 36600; 71045; 71046; 80048; 80053; 81001; 82803; 82962; 83605; 83735; 83880; 84484; 84550; 85025; 85610; 85652; 86140; 87040; 87070; 87205; 87804; 94640; 94760; 96361; 96365; 96375; 99285; A9270-GY; J0456; J0696; J0744; J1815-GY; J2543; J2920; J2930; J7030; J7050; J7620-GY

== ENCOUNTER 2019-07-14 10:53 | Inpatient (IN) | payer MEDICARE, BC ==
[2019-07-14] MEDS ORDERED: Sodium Chloride 0.9% 10 ML Syringe FLUSH PRN (10:58)
[2019-07-14] MEDS ORDERED: methylPREDNISolone Sodium Succinate 125 MG/2 ML SDV IV ONE (11:03)
[2019-07-14] MEDS ORDERED: Albuterol/Ipratropium 3.0-0.5 MG/3 ML Neb Soln NEB ONE (11:03)
--- NOTE | 2019-07-14 11:17 | EDM.PDOC ---
ED HPI GENERAL MEDICAL PROBLEM - General Time Seen by Provider: 07/14/19 10:55 Source of Information: Reports: Patient, Old Records, Provider History Limitations: Reports: No Limitations - History of Present Illness INITIAL COMMENTS - FREE TEXT/NARRATIVE: Pt. was sent to ER by Dr. Guillen with complaints of severe dyspnea. Pt. was noted to be anxious, tachypneic, and diaphoretic and was subsequently sent to ED. Pt. states that he has been experiencing cough and chest congestion for about 2 weeks, and complains of increased cough (occasionally productive of conley colored sputum), increased work of breathing, COURTNEY, and wheezing. He has not been checking his temp and denies any chills. No chest pain. No jaw, arm, neck or back pain. Pt. has a history of severe COPD. Most recent PFT 06/20/19 FVC 2.92, which is 66% of predicted prebronchodilator and 75% of predicted postbronchodilator. FEV1 is 1.53, which is 47% of predicted prebronchodilator and 57% of predicted postbronchodilator. FEV1/FVC ratio is 56 postbronchodilator. Total lung capacity 6.60, which is 92% of predicted. Residual volume is 3.45 which is 131% of predicted. Diffusion capacity is 14.9 mL/mmHg per minute, which is 59% of predicted. Airway resistance is 5.96 cm of water per liter per second, which is 420% of predicted. CONCLUSION: 1. Moderate obstructive ventilatory limitation. Significant response to bronchodilator administration. 2. Mild air trapping. 3. Moderately reduced DLCO corrected for hemoglobin. 4. Increased airway resistance and decreased specific conductance. 5. Scooped expiratory limb suggestive of obstructive airway disease. 6. Compared to PFTs that were done on February 07, 2014, the FVC has declined by more than 400 mL, which is significant. The FEV1 has declined by more than 2 mL , which is significant. The DLCO has declined by more than that 10 mL/mmHg per minute, which is very significant. Pt. is a code 1. Denies any previous intubation for respiratory failure. He is anticoagulated due to history of paroxysmal atrial fibrillation. He has an AICD , has a history of diastolic HF and aortic stenosis. Onset Date: 07/11/19 Location: Reports: Chest, Generalized Severity: Severe Improves with: Reports: Rest Worsens with: Reports: Movement Associated Symptoms: Reports: Shortness of Breath - Related Data Allergies Allergy/AdvReac Type Severity Reaction Status Date / Time Penicillins Allergy Unknown Hives Verified 12/23/17 08:23 lisinopril AdvReac Unknown Cough Verified 12/23/17 08:23 Home Meds: Home Meds Losartan Potassium 25 mg PO BEDTIME 10/20/14 [History] Albuterol [IJD: Ventolin HFA] 1 - 2 puff INH Q4H PRN 05/20/16 [History] Metoprolol Succinate [Toprol XL 100mg] 100 mg PO DAILY 05/20/16 [History] Furosemide [Lasix] 20 mg PO DAILY #30 tablet 05/22/16 [Rx] Tiotropium Br/Olodaterol HCl [Stiolto Respimat Inhal Maybell] 2 puff PO DAILY [History] Warfarin [Coumadin] 7.5 mg PO SUMOTUWETHSA@10/12/17 [History] predniSONE 20 mg PO DAILY #5 tablet 10/14/17 [Rx] Acetaminophen/oxyCODONE [Percocet 325-5 MG] 1 each PO Q4H PRN 12/23/17 [History] Warfarin [Coumadin] 10 mg PO FR@199912/23/17 [History] Albuterol [IJD: Albuterol] 2.5 mg NEB Q4H PRN #1 nebule 12/25/17 [Rx] Cefuroxime [Ceftin 125 MG/5 ML Susp] 500 mg PO Q12HR #1 bottle 12/25/17 [Rx] Magnesium Oxide 400 mg PO DAILY #30 tablet 12/25/17 [Rx] Past Medical History HEENT History: Reports: Hard of Hearing, Impaired Vision Other HEENT History: Wears hearing aides and glasses Cardiovascular History: Reports: Afib, Cardiomyopathy, Heart Failure, Heart Valve Replacement, Hypertension, Pulmonary Hypertension Respiratory History: Reports: COPD, SOB Gastrointestinal History: Reports: GI Bleed Genitourinary History: Reports: Acute Renal Failure Musculoskeletal History: Reports: Arthritis Psychiatric History: Reports: None Hematologic History: Reports: Other (See Below) Other Hematologic History: History of Leukemia with stem cell transplant in 2008 Oncologic (Cancer) History: Reports: Leukemia - Infectious Disease History Infectious Disease History: Reports: Chicken Pox - Past Surgical History Head Surgeries/Procedures: Reports: None Musculoskeletal Surgical History: Reports: None Oncologic Surgical History: Reports: None Social & Family History - Family History Family Medical History: Noncontributory - Caffeine Use Caffeine Use: Reports: Coffee, Soda ED ROS GENERAL - Review of Systems Review Of Systems: See Below Constitutional: Denies: Fever, Chills HEENT: Reports: No Symptoms Respiratory: Reports: Shortness of Breath, Wheezing, Cough, Sputum. Denies: Hemoptysis Cardiovascular: Reports: No Symptoms Endocrine: Reports: No Symptoms GI/Abdominal: Reports: No Symptoms : Reports: No Symptoms Musculoskeletal: Reports: No Symptoms Skin: Reports: Diaphoresis Neurological: Reports: No Symptoms Psychiatric: Reports: No Symptoms Hematologic/Lymphatic: Reports: No Symptoms Immunologic: Reports: No Symptoms ED EXAM, GENERAL - Physical Exam Exam: See Below Exam Limited By: No Limitations General Appearance: Alert, WD/WN, Moderate Distress Eye Exam: Bilateral Eye: EOMI, Normal Fundi, Normal Inspection Head: Atraumatic, Normocephalic Neck: Normal Inspection, Supple Respiratory/Chest: Decreased Breath Sounds, Rhonchi, Wheezing Cardiovascular: No Edema, No Gallop, No JVD, No Murmur, Irregularly Irregular GI/Abdominal: Soft, Non-Tender, No Distention, Distended (obese) (Male) Exam: Deferred Rectal (Males) Exam: Deferred Back Exam: Normal Inspection, Full Range of Motion Extremities: No Pedal Edema, Normal Capillary Refill Neurological: Alert, Oriented, CN II-XII Intact, Normal Cognition, Normal Gait, Normal Reflexes, No Motor/Sensory Deficits Psychiatric: Normal Affect, Normal Mood Skin Exam: Warm, Diaphoretic, Pallor Lymphatic: No Adenopathy Course - Orders/Labs/Meds Orders: Active Orders 24 hr Category Date Time Status Cardiac Monitoring [RC] CONTINUOUS Care 07/14/19 10:58 Active EKG Documentation Completion [RC] STAT Care 07/14/19 10:59 Active Oxygen Therapy [RC] PRN Care 07/14/19 10:58 Active RT Aerosol Therapy [RC] ASDIRECTED Care 07/14/19 11:04 Active RT Aerosol Therapy [RC] ASDIRECTED Care 07/14/19 11:21 Active CULTURE BLOOD [BC] Stat Lab 07/14/19 11:18 Received CULTURE BLOOD [BC] Stat Lab 07/14/19 11:24 Received Sodium Chloride 0.9% [Saline Flush] Med 07/14/19 10:58 Active 10 ml FLUSH ASDIRECTED PRN Blood Culture x2 Reflex Set [OM.PC] Stat Oth 07/14/19 10:59 Ordered Peripheral IV Insertion Adult [OM.PC] Routine Oth 07/14/19 10:59 Ordered Medication Orders Sodium Chloride (Saline Flush) 10 ml FLUSH ASDIRECTED PRN PRN Reason: Keep Vein Open Labs: Laboratory Tests 07/14/19 07/14/19 07/14/19 Range/Units 11:18 11:18 11:18 WBC 13.8 H (4.0-10.0) x10^3/uL RBC 4.75 (4.5-6.0) x10^6/uL Hgb 15.9 D (14.0-18.0) g/dL Hct 46.7 (40.0-52.0) % MCV 98.3 H (78.0-93.0) fL MCH 33.5 H (26.0-32.0) pg MCHC 34.0 (32.0-36.0) g/dL RDW Coeff of Todd 16.7 H (10.0-15.0) % Plt Count 385 (130-400) x10^3/uL Add Manual Diff Yes Neutrophils % (Manual) 67 (50-80) % Band Neutrophils % 1 (0-6) % Lymphocytes % (Manual) 9 L (25-50) % Monocytes % (Manual) 14 H (2-11) % Eosinophils % (Manual) 5 H (0-4) % Basophils % (Manual) 4 H (0-1) % Platelet Estimate Adequate Giant Platelets Occasional H Anisocytosis 1+ slight H PT 23.9 H (10.0-12.8) SEC INR 2.1 (2.0-3.5) POC ABG pH (7.35-7.45) POC ABG pCO2 (35-45) mmHG POC ABG pO2 (80-105) mmHG POC ABG HCO3 (22-26) mmol/L POC ABG Total CO2 (23-27) mmol/L POC ABG O2 Sat (95-98) % POC ABG Base Excess (-2-3) mmol/L POC FiO2 Sodium 142 (136-145) mmol/L Potassium 3.9 (3.5-5.1) mmol/L Chloride 103 (98-107) mmol/L Carbon Dioxide 27 (21-32) mmol/L Anion Gap 15.9 (10-20) mmol/L BUN 25 H (7-18) mg/dL Creatinine 1.6 H (0.70-1.30) mg/dL Est Cr Clr Drug Dosing TNP Estimated GFR (MDRD) 43 Glucose 132 H (74-106) mg/dL Lactic Acid (0.4-2.0) mmol/L Calcium 8.9 (8.5-10.1) mg/dL Corrected Calcium 9.22 (8.5-10.1) mg/dL Phosphorus 3.0 (2.6-4.7) mg/dL Magnesium 1.5 L (1.8-2.4) mg/dL Total Bilirubin 0.4 (0.2-1.0) mg/dL AST 20 (15-37) U/L ALT 32 (16-63) U/L Alkaline Phosphatase 93 (46-116) U/L Troponin I 0.029 (<=0.056) ng/mL C-Reactive Protein 3.0 H (<=0.9) mg/dL NT-Pro-B Natriuret Pep 4076 H (<=125) pg/mL Total Protein 8.6 H (6.4-8.2) g/dL Albumin 3.6 (3.4-5.0) g/dL Globulin 5.0 Albumin/Globulin Ratio 0.72 TSH, Ultra Sensitive 4.247 H (0.358-3.74) uIU/mL 07/14/19 07/14/19 Range/Units 11:18 11:35 WBC (4.0-10.0) x10^3/uL RBC (4.5-6.0) x10^6/uL Hgb (14.0-18.0) g/dL Hct (40.0-52.0) % MCV (78.0-93.0) fL MCH (26.0-32.0) pg MCHC (32.0-36.0) g/dL RDW Coeff of Todd (10.0-15.0) % Plt Count (130-400) x10^3/uL Add Manual Diff Neutrophils % (Manual) (50-80) % Band Neutrophils % (0-6) % Lymphocytes % (Manual) (25-50) % Monocytes % (Manual) (2-11) % Eosinophils % (Manual) (0-4) % Basophils % (Manual) (0-1) % Platelet Estimate Giant Platelets Anisocytosis PT (10.0-12.8) SEC INR (2.0-3.5) POC ABG pH 7.396 (7.35-7.45) POC ABG pCO2 41 (35-45) mmHG POC ABG pO2 72 L (80-105) mmHG POC ABG HCO3 25 (22-26) mmol/L POC ABG Total CO2 26 (23-27) mmol/L POC ABG O2 Sat 94 L (95-98) % POC ABG Base Excess 0 (-2-3) mmol/L POC FiO2 0.28 Sodium (136-145) mmol/L Potassium (3.5-5.1) mmol/L Chloride (98-107) mmol/L Carbon Dioxide (21-32) mmol/L Anion Gap (10-20) mmol/L BUN (7-18) mg/dL Creatinine (0.70-1.30) mg/dL Est Cr Clr Drug Dosing Estimated GFR (MDRD) Glucose (74-106) mg/dL Lactic Acid 1.5 (0.4-2.0) mmol/L Calcium (8.5-10.1) mg/dL Corrected Calcium (8.5-10.1) mg/dL Phosphorus (2.6-4.7) mg/dL Magnesium (1.8-2.4) mg/dL Total Bilirubin (0.2-1.0) mg/dL AST (15-37) U/L ALT (16-63) U/L Alkaline Phosphatase (46-116) U/L Troponin I (<=0.056) ng/mL C-Reactive Protein (<=0.9) mg/dL NT-Pro-B Natriuret Pep (<=125) pg/mL Total Protein (6.4-8.2) g/dL Albumin (3.4-5.0) g/dL Globulin Albumin/Globulin Ratio TSH, Ultra Sensitive (0.358-3.74) uIU/mL Meds: Medications Generic Name Dose Route Start Last Admin Trade Name Freq PRN Reason Stop Dose Admin Sodium Chloride 10 ml 07/14/19 10:58 Saline Flush FLUSH ASDIRECTED PRN Keep Vein Open Discontinued Medications Generic Name Dose Route Start Last Admin Trade Name Lelya PRN Reason Stop Dose Admin Albuterol 2.5 mg 07/14/19 11:21 07/14/19 11:20 Proventil Neb Soln NEB 07/14/19 11:22 2.5 mg ONETIME ONE Administration Albuterol/Ipratropium 3 ml 07/14/19 11:03 07/14/19 10:54 Duoneb 3.0-0.5 Mg/3 Ml NEB 07/14/19 11:04 3 ml ONETIME ONE Administration Azithromycin 500 mg 07/14/19 11:24 07/14/19 11:32 Zithromax PO 07/14/19 11:25 500 mg ONETIME ONE Administration Ceftriaxone Sodium 2 gm 07/14/19 11:23 07/14/19 11:32 Rocephin IVPUSH 07/14/19 11:24 2 gm STAT ONE Administration Methylprednisolone Sodium Succinate 125 mg 07/14/19 11:03 07/14/19 11:11 Solu-Medrol IV 07/14/19 11:04 125 mg ONETIME ONE Administration - Radiology Interpretation Free Text/Narrative:: CXR negative for acute pathology Departure - Departure Time of Disposition: 12:17 Disposition: Admitted As Inpatient 65 Clinical Impression: COPD (chronic obstructive pulmonary disease), Hypoxemia, COPD with exacerbation - Discharge Information - Problem List Review Problem List Initiated/Reviewed/Updated: Yes - My Orders Last 24 Hours: My Active Orders 07/14/19 10:58 Cardiac Monitoring [RC] CONTINUOUS Oxygen Therapy [RC] PRN Sodium Chloride 0.9% [Saline Flush] 10 ml FLUSH ASDIRECTED PRN 07/14/19 10:59 EKG Documentation Completion [RC] STAT Blood Culture x2 Reflex Set [OM.PC] Stat Peripheral IV Insertion Adult [OM.PC] Routine 07/14/19 11:04 RT Aerosol Therapy [RC] ASDIRECTED 07/14/19 11:18 CULTURE BLOOD [BC] Stat 07/14/19 11:21 RT Aerosol Therapy [RC] ASDIRECTED 07/14/19 11:24 CULTURE BLOOD [BC] Stat - Assessment/Plan Last 24 Hours: My Active Orders 07/14/19 10:58 Cardiac Monitoring [RC] CONTINUOUS Oxygen Therapy [RC] PRN Sodium Chloride 0.9% [Saline Flush] 10 ml FLUSH ASDIRECTED PRN 07/14/19 10:59 EKG Documentation Completion [RC] STAT Blood Culture x2 Reflex Set [OM.PC] Stat Peripheral IV Insertion Adult [OM.PC] Routine 07/14/19 11:04 RT Aerosol Therapy [RC] ASDIRECTED 07/14/19 11:18 CULTURE BLOOD [BC] Stat 07/14/19 11:21 RT Aerosol Therapy [RC] ASDIRECTED 07/14/19 11:24 CULTURE BLOOD [BC] Stat Plan: Pt. will be admitted acutely. He indicates that he is a code 1. Dr. Guillen will be admitting and attending. He has been responding well to nebulizer treatments.
[2019-07-14] MEDS ORDERED: Albuterol 0.083% 2.5 MG/3 ML Neb Soln NEB ONE ×2 (11:21→12:20)
[2019-07-14] MEDS ORDERED: cefTRIAXone 2 GM Vial IVPUSH ONE (11:23)
[2019-07-14] MEDS ORDERED: Azithromycin 250 MG Tab PO ONE (11:24)
--- NOTE | 2019-07-14 11:40 | CR ---
[id number] RAD/RAD Chest PA or AP 1V EXAM: SINGLE VIEW CHEST. INDICATION: SHORTNESS OF BREATH COMPARISON: CORRELATION IS MADE WITH THE EXAM OF DECEMBER 24, 2017 FINDINGS: The lungs are clear. The cardiomediastinal contour is stable The pacemaker is seen Cardiac surgical changes are identified IMPRESSION: NO PNEUMONIA OR EDEMA Isaac Platt MD 07/14/19 1621 Thank you for allowing us to participate in the care of your patient.
[2019-07-14 12:08] LABS: CHLORIDE,CL 103 mmol/L (98-107); SODIUM,NA 142 mmol/L (136-145)
[2019-07-14 12:09] LABS: ANION GAP 15.9 mmol/L (10-20)
[2019-07-14] MEDS ORDERED: Codeine/Promethazine 10-6.25 MG/5 ML Syrup 5 ML UD Cup PO ONE (12:22)
[2019-07-14] MEDS ORDERED: Benzonatate 100 MG Cap PO ONE (12:24)
[2019-07-14] MEDS ORDERED: Albuterol 0.083% 2.5 MG/3 ML Neb Soln NEB PRN (13:40)
[2019-07-14] MEDS: Arformoterol 15 MCG/2 ML Neb Soln NEB SCH ×2 (14:25→20:15)
[2019-07-14] MEDS: methylPREDNISolone Sodium Succinate 40 MG/1 ML SDV IVPUSH SCH ×2 (14:25→20:15)
[2019-07-14] MEDS: Albuterol/Ipratropium 3.0-0.5 MG/3 ML Neb Soln NEB SCH ×3 (14:26→22:04)
[2019-07-14] MEDS: Insulin Glargine,Human Rec. Analog 100 Units/ML 3 ML Pen SUBCUT SCH (17:18)
[2019-07-14] MEDS ORDERED: Warfarin 2.5 MG Tab PO SCH (20:00)
[2019-07-14] MEDS ORDERED: Insulin Lispro 100 Unit/ML 3 ML KwikPen SUBCUT STA (20:57)
[2019-07-15] MEDS: Albuterol/Ipratropium 3.0-0.5 MG/3 ML Neb Soln NEB SCH ×4 (02:20→14:45)
[2019-07-15 07:09] LABS: ANION GAP 13.8 mmol/L (10-20)
[2019-07-15] MEDS: Arformoterol 15 MCG/2 ML Neb Soln NEB SCH (07:11)
--- NOTE | 2019-07-15 07:48 | HP ---
CHIEF COMPLAINT: Shortness of breath and cough. HISTORY OF PRESENT ILLNESS: This is a 69-year-old male, who came into the clinic feeling more tired due to cough and shortness of breath, getting worse over the last week. States his symptoms started after he was out in the rain on Thursday. He is coughing up just clear phlegm. He was not on his oxygen when he came in the clinic, was very tachypneic. He was put on 2 L. He could hardly complete sentence. He got into a coughing spell and he was even getting more red. I felt he was unstable, so we take took him over to the ER, immediately improved with a nebulizer, did not require BiPAP. The patient is supposed to be starting on a CPAP. They are going to come out and set him up Thursday. He has been using his inhalers Stiolto and his albuterol inhaler more often, like 3 times a day, but seldom uses his nebulizer. He has been on prednisone now for 1 year, but he recently went to the supervisor winter and was found to have worsening of his lung function with COPD, to FEV1 now at 1.53 or 47%, and a moderately reduced DLCO with some air trapping. He has a decline of 2 mL with an FEV1 since 5 years. He also has a known history of heart failure and recently had to stop his losartan yesterday due to creatinine up to 1.8. His EF has been like 35% to 40%. He does have a pacemaker in place and has not noted any fast heart rates, but is on Coumadin for atrial fibrillation. He has not had any fever or chills. In fact, he has known worsening pulmonary hypertension and that is why he was referred over to [place] for his nonischemic cardiomyopathy, NYHA class 4, having dyspnea at rest. He had previous aortic valve surgery. Drew to have some left-sided heart disease as a source of the pulmonary hypertension. He had also ICD with some inappropriate shocks last winter. He has status post ELECTROFORMER-D therapy. ALLERGIES: Include penicillin, lisinopril causes cough. MEDICATIONS: His medication list includes: Losartan 75 mg daily, but currently on hold, Stiolto 2 puffs 1 time a day, albuterol inhaler, Toprol 150 mg daily, Bumex 1 mg daily, Coumadin 7.5 mg daily and 5 mg on Mondays, allopurinol 300 mg daily, and Protonix 40 mg daily. 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 PAST SURGICAL HISTORY: The patient has had a tonsillectomy, splenectomy, aortic valve surgery. FAMILY HISTORY: Brother with prostate cancer, he has had a heart attack, heart disease. Mother still living, has macular degeneration. Father , he had a heart attack and diabetes. 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 He is , but they had let him go out on because of his current health status this last week. He is a nonsmoker. He drinks alcohol, but not in excess. He is not a current smoker, he quit in 1992. REVIEW OF SYSTEMS: General: He has not had any weight changes. No fever, chills, again. HEENT: No sore throat. Cardiac: He has not noticed any palpitations. No leg swelling. Respiratory: The patient has had more coughing. He has had more wheezing. Abdominal: No nausea, vomiting, or abdominal pain. Otherwise, all systems reviewed and found to be negative unless otherwise stated. PHYSICAL EXAMINATION: Vital Signs: The patient's initial respiratory rate in the clinic was 34. He had repeat after nebs, it was down to 24. He is 92% on 2 L. We did not get an oxygen prior to putting him on oxygen due to his acute respiratory status. Temperature 98.7, pulse 86, blood pressure 117/65, weight 110 kg. General: He is in moderate distress due to dyspnea. He is tripoding. He is not able to lay down. Heart: Regular rate and rhythm. He has a murmur. Respiratory: Lung sounds decreased throughout, with both inspiratory and expiratory wheezing. No crackles appreciated. Abdomen: Nondistended, nontender. Extremities: Warm and dry. No edema. Mental Status: He is alert. He is orientated x3. He is not overly depressed or anxious. LABORATORY DATA: Lab work did show his white count 13.8, hemoglobin 15.9, platelets 385. INR 2.1. ABG 7.396, pCO2 of 41, pO2 of 72, CO3 of 25. Sodium 142, potassium 3.9, chloride 103, bicarb 27, BUN 25, creatinine 1.6, glucose 132, magnesium 1.5, calcium 8.9, bilirubin 0.4, AST 20, ALT 32, troponin 0.029, alkaline phosphatase 93. CRP 3. ProBNP 4076, which is similar to previous NT- proBNP. Albumin 3.6. TSH 4.2. ASSESSMENT AND PLAN: 1. Acute on chronic hypoxic respiratory failure secondary to chronic obstructive pulmonary disease exacerbation. The patient is actually supposed to be on oxygen for his pulmonary hypertension, but came into the clinic without it. 2. Chronic obstructive pulmonary disease exacerbation with [id number] chronic obstructive pulmonary disease. 3. Known chronic systolic heart failure with nonischemic cardiomyopathy and EF 35% to 40% with ELECTROFORMER-D therapy. 4. Pulmonary hypertension. 5. Untreated sleep apnea. 6. History of aortic valve replacement. He is on anticoagulation more for the atrial fibrillation. 7. Atrial fibrillation. 8. History of esophageal ulcer. 9. Essential hypertension. 10.Renal insufficiency with recent worsening, but baseline creatinine CKD 3. PLAN: The patient is admitted for acute cares. IV steroids were given in the ER 125. We will do 40 IV twice daily. We will have him on q.4-hour DuoNebs and q.1-hour p.r.n. albuterol nebs. I will also start him on nebulized Brovana and I will hold his Stiolto for now. He got Rocephin and Zithromax in the ER. We will continue with that. Otherwise, he will be on continuous pulse ox. He will be on telemetry. We will repeat lab work tomorrow. We will have RT see him and get him on some flutter valve therapy. Even though he is improved, I am still going to have him on BiPAP due to his increased work of breathing, and after consultation with his supervisor winter, they feel starting on the CPAP sooner rather than later will ultimately help this patient. I will continue his home doses of Bumex. He does not appear to be having any acute heart failure exacerbations. The patient elects to be a code level 1. If his condition was to worsen and he would require intubation, transfer would be arranged to [facility]. MKA: 07/14/2019 17:00:33 MODL: 07/15/2019 07:41:33 /[id number]
[2019-07-15] MEDS ORDERED: Allopurinol 300 MG Tab PO SCH (08:00)
[2019-07-15] MEDS ORDERED: Azithromycin 250 MG Tab PO SCH (08:00)
[2019-07-15] MEDS ORDERED: Bumetanide 1 MG Tab PO SCH (08:00)
[2019-07-15] MEDS ORDERED: Metoprolol Succinate 50 MG Tab.ER PO SCH (08:00)
[2019-07-15] MEDS ORDERED: cefTRIAXone 1 GM Vial IVPUSH SCH (08:00)
[2019-07-15] MEDS ORDERED: Pantoprazole 40 MG Tab.CR PO SCH (08:00)
[2019-07-15] MEDS: methylPREDNISolone Sodium Succinate 40 MG/1 ML SDV IVPUSH SCH (08:14)
[2019-07-15] MEDS ORDERED: Insulin Glargine,Human Rec. Analog 100 Units/ML 3 ML Pen SUBCUT SCH (08:15)
[2019-07-15] MEDS ORDERED: Magnesium Oxide 400 MG Tab PO SCH (08:15)
[2019-07-15] MEDS: Insulin Glargine,Human Rec. Analog 100 Units/ML 3 ML Pen SUBCUT SCH (09:53)
[2019-07-15 15:55] VITALS: BP 121/50; PULSE 75
--- NOTE | 2019-07-15 18:54 | DISCH ---
PRIMARY DISCHARGE DIAGNOSES: 1. Acute on chronic hypoxic respiratory failure secondary to chronic obstructive pulmonary disease exacerbation. 2. Chronic obstructive pulmonary disease exacerbation with [id number] underlying chronic obstructive pulmonary disease. 3. Known chronic systolic heart failure, EF 35% to 40%. 4. Pulmonary hypertension. 5. Untreated sleep apnea. 6. History of aortic valve replacement. 7. Atrial fibrillation. 8. Remote history of esophageal ulcer. 9. Essential hypertension. 10.Renal insufficiency with recent worsening of creatinine up to 1.8. REASON FOR ADMISSION: On the date of admission, this 69-year-old presented to the clinic. He was having increasing shortness of breath over the past week. He was tachypneic. He was actually not able to complete full sentences. We sent him over to the ER. He got started on a neb immediately and there was some concern he may need BiPAP, although he was able to use it, but not emergently. He stated it helped him to feel better. He was not relying fully on the BiPAP and actually had some trouble sleeping without it, so he was easily weaned off. He was extremely wheezy, got 125 of Solu-Medrol, then 40 twice daily, but by the next morning he was improved, maybe 80%, and by later that afternoon he had just rare expiratory wheezing, was breathing better, was able to be weaned down to just 2 L of oxygen. He is normally supposed to use oxygen at home, but he has been using it mainly with sleep and not always with activity. The patient had actually been going to pulmonary rehab. He had been compliant with his Stiolto. Discussion was had between myself and the nut sorter operator, and recommendations to go on Pulmicort and Brovana nebs were made. He was in agreement and potentially on something like [place] down the road. LABORATORY DATA: His lab work was monitored during his stay. His magnesium was mildly low at 1.5, so he was started on oral magnesium. Otherwise, his creatinine was 1.6 and stable while here. White count did go up to 23.6, that was felt to be due to the Solu-Medrol. He otherwise had a chest x-ray that did not show any acute pneumonia. INR was 2.1. ABGs with PO2 of 72, pCO2 of 41 on admission. DISCHARGE PLANS AND INSTRUCTIONS: The patient is going to be seen in the clinic with myself in 1-2 weeks. He will have a BMP, CBC, and magnesium at that time. He will also be on prednisone 40 mg daily for another 5 days. He will be on Zithromax 500 daily for 3 days. He did get also IV Rocephin while he is here. He will switch over to the Brovana and Pulmicort nebs when he receives them. Hopefully by tomorrow, he will be able to stop the Stiolto. He also was ordered to be on DuoNeb 4 times a day as needed for cough. He will go to pulmonary rehab on Thursday. If he is not able to participate, then he can resume when he is able. Thursday, Katia will be out to set up his CPAP. He will use oxygen 2 L at all times. He will take it easy and rest. No strenuous work like outside the home, but in a couple of weeks he may be able to. Given the high blood sugars even up to 300 due to the steroids, I did send Lantus 10 units daily in the pen to home with him to use until he is off steroids. PHYSICAL EXAMINATION: Vital Signs: Today showed temperature 98.1, pulse 75, blood pressure 121/50, respiratory rate was 18, and O2 of 93% on 2 L. General: He is in no acute distress. Heart: Regular rate and rhythm with murmur. Lungs: Sounds are slightly decreased with rare expiratory wheezing. Abdomen: Nontender, but mild distention. Extremities: Warm and dry. No edema. Mental Status: He is alert. He is orientated x3. Greater than 30 minutes spent on this discharge process. MKA: 07/15/2019 18:17:07 MODL: 07/15/2019 18:50:29 /[id number]
[2019-07-18] MEDS ORDERED: Warfarin 5 MG Tab PO SCH (20:00)
== END 2019-07-15 18:05 | disposition home or self-care (01) | DRG 189 ==
LOC: VM.ED 10:53 → VM.MS 13:15
PROVIDERS: ADMIT Internal Medicine; ATTEND Internal Medicine
PROC: 5A09357 Assistance with Respiratory Ventilation, Less than 24 Consecutive Hours, Continuous Positive Airway Pressure (ICD-10-PCS; principal; 2019-07-14)
DX: J96.21 Acute and chronic respiratory failure with hypoxia (principal); J44.1 Chronic obstructive pulmonary disease with (acute) exacerbation; R09.02 Hypoxemia; H54.7 Unspecified visual loss; H91.90 Unspecified hearing loss, unspecified ear; I42.9 Cardiomyopathy, unspecified; I11.0 Hypertensive heart disease with heart failure; I50.9 Heart failure, unspecified; Z87.19 Personal history of other diseases of the digestive system; M19.90 Unspecified osteoarthritis, unspecified site; I13.0 Hypertensive heart and chronic kidney disease with heart failure and stage 1 through stage 4 chronic kidney disease, or unspecified chronic kidney disease; Z94.84 Stem cells transplant status; I50.22 Chronic systolic (congestive) heart failure; I27.20 Pulmonary hypertension, unspecified; G47.30 Sleep apnea, unspecified; I48.91 Unspecified atrial fibrillation; N18.3 Chronic kidney disease, stage 3 (moderate); E11.22 Type 2 diabetes mellitus with diabetic chronic kidney disease; Z88.0 Allergy status to penicillin; Z88.8 Allergy status to other drugs, medicaments and biological substances; Z79.01 Long term (current) use of anticoagulants; Z79.899 Other long term (current) drug therapy; Z85.6 Personal history of leukemia; Z79.52 Long term (current) use of systemic steroids; Z95.2 Presence of prosthetic heart valve
CPT/HCPCS: 36415; 36600; 71045; 80053; 82803; 83605; 83735; 83880; 84100; 84443; 84484; 85025; 85610; 86140; 87040 ×2; 93005; 94640 ×3; 96374; 96375; 99285; A9270 ×2; J0696; J2930; 80048; 82962; 94660; 94760; 99284-GF; J1815-GY; J2920; J7613-GY; J7620-GY

== ENCOUNTER 2019-10-12 11:39 | Inpatient (IN) | payer MEDICARE, BC ==
[2019-10-12] MEDS ORDERED: Sodium Chloride 0.9% 10 ML Syringe FLUSH PRN (12:08)
[2019-10-12] MEDS ORDERED: Warfarin 5 MG Tab PO ONE (12:12)
[2019-10-12] MEDS ORDERED: Albuterol/Ipratropium 3.0-0.5 MG/3 ML Neb Soln NEB ONE (12:13)
[2019-10-12] MEDS ORDERED: Enoxaparin 40 MG/0.4 ML Syringe SUBCUT SCH (12:15)
[2019-10-12] MEDS: Doxycycline 100 MG Cap PO SCH ×2 (12:29→19:33)
[2019-10-12] MEDS: methylPREDNISolone Sodium Succinate 40 MG/1 ML SDV IVPUSH SCH (12:30)
[2019-10-12] MEDS: Albuterol/Ipratropium 3.0-0.5 MG/3 ML Neb Soln NEB SCH ×3 (14:43→23:42)
[2019-10-12] MEDS: Benzonatate 100 MG Cap PO SCH ×2 (16:40→19:34)
[2019-10-12] MEDS: Furosemide 20 MG/2 ML VIAL IV SCH (16:40)
[2019-10-12] MEDS: Insulin Glargine,Human Rec. Analog 100 Units/ML 3 ML Pen SUBCUT SCH (19:30)
[2019-10-12] MEDS: Arformoterol 15 MCG/2 ML Neb Soln NEB SCH (19:33)
[2019-10-12] MEDS: Albuterol 0.083% 2.5 MG/3 ML Neb Soln NEB PRN (21:58)
--- NOTE | 2019-10-12 23:18 | HP ---
CHIEF COMPLAINT: Trouble breathing. HISTORY OF PRESENT ILLNESS: This is a 69-year-old male with known history of COPD and frequent exacerbation, who started feeling lousy about 4 days ago. He had been to a concert for grand kids on Thursday and then another one Thursday. He has had no fever, but he has been coughing up some milky stuff. No wheezing. He has been using his inhaler more, but has not tried his neb. His last admission for his lungs was in June. He also has a known history of heart failure. His Bumex dose has been adjusted just to 0.5 mg daily within the last month. Due to worsening renal function, he is also on losartan 25 mg daily. He has an ICD also at [facility] in 2018. He has sleep apnea and is on a CPAP. He does have oxygen to use with activity. He comes into the clinic not using it today and his O2 was 90% on room air. His EF has been between 25% to 45%. He also has known pulmonary hypertension. Most recent echo was at [facility] in 02/2019, showed his EF at 30% to 35%. He has also had prosthetic aortic valve surgery in the past. He is on Coumadin for AFib. His INR 3 weeks ago was therapeutic. It was just 1.6 in the clinic today. He is denying chest pain. ALLERGIES: Include penicillin, hives; and lisinopril, cough. MEDICATIONS: Reviewed and do show Toprol 200 mg daily, Bumex 0.5 daily, losartan 50 mg daily, allopurinol 300 daily. He is taking Stiolto 2 puffs once daily now, Proventil every 4 hours as needed, Coumadin 10 mg on Thursday, 7.5 the rest of the week, Ventolin inhaler, Protonix 40 mg daily. PAST MEDICAL HISTORY: Includes: 1. Pulmonary hypertension, chronic systolic heart failure, EF 30% to 35%. 2. History of AML in remission after stem cell transplant actually 10 years ago. 3. Type 2 diabetes, controlled. He is not currently on any medications. He has had hyperglycemia in the past from steroids. 4. COPD, at least moderate with frequent exacerbations. 5. Sleep apnea. 6. History of esophageal ulcer and GI bleeding from NSAIDs. 7. Essential hypertension. FAMILY HISTORY: Prostate cancer, idiopathic chronic gout especially in the right knee, hypertriglyceridemia, low HDL, obesity, lumbar radiculopathy in the past, resolved, paroxysmal AFib, presence of AICD, status post aortic valve replacement with bioprosthetic in 2015 at [facility]. OTHER SURGICAL HISTORY: Other than stated above, tonsillectomy, splenectomy. FAMILY HISTORY: His mother is still living. Had some glaucoma and macular degeneration. Father . He had a heart attack and diabetes. Sister has arthritis. Brother has had an ME and prostate cancer. Another brother with heart disease. SOCIAL HISTORY: The patient himself is a former smoker. He has been drinking alcohol like 7 to 14 drinks per week, whiskey. He is a vásquez. REVIEW OF SYSTEMS: General: There has been no weight changes. No fever, no chills. HEENT: No sore throat. Cardiac: As stated in HPI. He has not noticed any palpitation. Respiratory: As stated in HPI. Abdomen: No nausea, vomiting, diarrhea. Otherwise, all systems reviewed and found to be negative unless otherwise stated. PHYSICAL EXAMINATION: Vital Signs: His temperature is 98.8, pulse 70, blood pressure 110/68, respiratory rate 28, O2 of 93% on 2 L, 90% on room air. General: He is in no acute distress. Heart: Regular rate and rhythm with murmur noted. Lungs: Sounds are decreased throughout with rare expiratory wheezing. No crackles or rales. Abdomen: Nondistended, nontender. Extremities: Warm, dry. No edema. Mental Status: He is alert. He is orientated x3. DIAGNOSTIC DATA: EKG was reviewed, shows a paced rhythm, unchanged from his previous EKG. Chest x-ray reviewed. No pulmonary edema. No infiltrates to suggest pneumonia. LABORATORY WORK: Did show his white count elevated at 15.9, hemoglobin 13.5, platelets 389. A1c today 7.2, INR 1.6, slightly low, glucose 205, BUN 26, creatinine 1.5, sodium 140, potassium 4.1, chloride 108, bicarb 21, calcium 9.3, GFR is 45. His proBNP over at the hospital was 9455. His troponin was negative. ASSESSMENT: 1. Acute chronic obstructive pulmonary disease exacerbation with at least moderate chronic obstructive pulmonary disease. 2. Chronic systolic heart failure. 3. Type 2 diabetes with hyperglycemia, likely will be worsened by steroids. 4. Atrial fibrillation, on Coumadin, slightly subtherapeutic. 5. Chronic kidney disease with recent worsening of his creatinine due to diuresis for heart failure. 6. Pulmonary hypertension. 7. Sleep apnea. 8. Remote history of acute myeloid leukemia. 9. History of gastrointestinal bleeding. PLAN: At this point, the patient is admitted for acute cares. We will have him on IV Solu-Medrol 40 mg daily q.4 hours, scheduled DuoNebs. We will have RT see him. Get him using a flutter valve. I think he is doing well enough to not require any BiPAP, but he is certainly not well enough to go home. Given elevated INR, we will give him IV Lasix instead of his Bumex. We will give him 20 mg daily, although there was not significant fluid noted on the x-ray. We will continue to monitor fluid status closely and hold off on any IV fluids for him. We will monitor blood pressures. We will monitor him with telemetry for his heart rates. We will repeat lab work tomorrow. We will hold his home Anoro and give him Brovana. For DVT prophylaxis, I did give him a dose of Lovenox. He is already on Coumadin. He is a code level 1. MKA: 10/12/2019 16:18:52 MODL: 10/12/2019 23:12:47 /[id number]
[2019-10-13] MEDS: Albuterol/Ipratropium 3.0-0.5 MG/3 ML Neb Soln NEB SCH ×5 (03:41→19:37)
[2019-10-13 07:00] LABS: ANION GAP 14.4 mmol/L (10-20)
[2019-10-13] MEDS: Arformoterol 15 MCG/2 ML Neb Soln NEB SCH ×2 (07:13→19:36)
[2019-10-13] MEDS: Losartan 25 MG Tab PO SCH (08:52)
[2019-10-13] MEDS: Doxycycline 100 MG Cap PO SCH ×2 (08:52→19:37)
[2019-10-13] MEDS: Benzonatate 100 MG Cap PO SCH ×3 (08:56→19:37)
[2019-10-13] MEDS: Metoprolol Succinate 50 MG Tab.ER PO SCH (08:56)
[2019-10-13] MEDS: Pantoprazole 40 MG Tab.CR PO SCH (08:56)
[2019-10-13] MEDS: Allopurinol 300 MG Tab PO SCH (08:56)
[2019-10-13] MEDS: methylPREDNISolone Sodium Succinate 40 MG/1 ML SDV IVPUSH SCH (08:57)
[2019-10-13] MEDS: Furosemide 20 MG/2 ML VIAL IV SCH (08:57)
[2019-10-13] MEDS: Insulin Lispro 100 Unit/ML 3 ML KwikPen SUBCUT SCH ×2 (12:00→17:05)
--- NOTE | 2019-10-13 15:06 | PN ---
Progress Note for NICOLASA MANUEL Date: 10/13/2019 Room #: VM.214 SUBJECTIVE: This is hospital day #2 on a 69-year-old admitted with a chronic obstructive pulmonary disease exacerbation. He did get also a dose of IV Lasix as opposed to his regular Bumex. He feels like his breathing is better, but he is still coughing, especially after he uses a nebulizer, he seems to cough like 15 minutes later. He otherwise has been afebrile. He has been in a paced rhythm on telemetry. He feels like he is not voiding as much. Bladder scan is pending. OBJECTIVE: Vital Signs: Temperature is 97.4; pulse is 73; blood pressure was 102/73 this morning, then 121/63 later; respiratory rate 20; O2 of 95% on 1 L. General: He is in no acute distress. Heart: Regular rate and rhythm with murmur noted. Lungs: Lung sounds are decreased throughout, but no crackles, no wheezes appreciated today. Extremities: Warm and dry. No edema. Mental Status: Alert and orientated x3. LABORATORY DATA: Lab work did show white count up to 18.1, hemoglobin 13.1, platelets 398. INR up to 1.7. Sodium 139, potassium 4.4, chloride 102, bicarb 27, BUN 32, creatinine 1.1. Glucose 190, it was up to 324 last evening. Albumin 2.9. ASSESSMENT AND PLAN: 1. Chronic obstructive pulmonary disease exacerbation with known moderate chronic obstructive pulmonary disease. 2. Chronic systolic heart failure. 3. Type 2 diabetes with hyperglycemia due to steroids. 4. Atrial fibrillation, on Coumadin, slightly subtherapeutic. 5. Chronic kidney disease with creatinine stable at 1.5. 6. Pulmonary hypertension. 7. Sleep apnea. 8. History of AML. 9. History of gastrointestinal bleeding. At this point, the patient will continue acute cares. We will decrease DuoNebs to q.i.d. We will continue the Solu-Medrol. We will continue with the flutter valve. We will give him his oral Bumex today. We will repeat lab work in the morning including an INR. We will discontinue telemetry monitoring. We will add some meal insulin 5 units with lunch and supper. We will continue with the Lantus 10 units at bedtime. Continue Accu-Cheks. MKA: 10/13/2019 14:28:23 MODL: 10/13/2019 14:59:50 /[id number]
[2019-10-13] MEDS: Bumetanide 1 MG Tab PO SCH (17:01)
[2019-10-13] MEDS: Insulin Glargine,Human Rec. Analog 100 Units/ML 3 ML Pen SUBCUT SCH (19:38)
[2019-10-13] MEDS ORDERED: Warfarin 5 MG Tab PO SCH (20:00)
[2019-10-14] MEDS: Albuterol 0.083% 2.5 MG/3 ML Neb Soln NEB PRN (00:26)
[2019-10-14] MEDS: Arformoterol 15 MCG/2 ML Neb Soln NEB SCH (06:27)
[2019-10-14] MEDS: Albuterol/Ipratropium 3.0-0.5 MG/3 ML Neb Soln NEB SCH ×3 (06:27→15:16)
[2019-10-14 06:47] LABS: ANION GAP 15.8 mmol/L (10-20)
[2019-10-14] MEDS: methylPREDNISolone Sodium Succinate 40 MG/1 ML SDV IVPUSH SCH (08:08)
[2019-10-14] MEDS: Metoprolol Succinate 50 MG Tab.ER PO SCH (08:08)
[2019-10-14] MEDS: Bumetanide 1 MG Tab PO SCH (08:09)
[2019-10-14] MEDS: Benzonatate 100 MG Cap PO SCH ×2 (08:11→11:52)
[2019-10-14] MEDS: Doxycycline 100 MG Cap PO SCH (08:11)
[2019-10-14] MEDS: Pantoprazole 40 MG Tab.CR PO SCH (08:11)
[2019-10-14] MEDS: Losartan 25 MG Tab PO SCH (08:11)
[2019-10-14] MEDS: Allopurinol 300 MG Tab PO SCH (08:11)
[2019-10-14] MEDS ORDERED: guaiFENesin/Dextromethorphan 100-10 MG/5 ML Soln 10 ML Cup PO PRN (08:44)
--- NOTE | 2019-10-14 10:04 | CR ---
[id number] RAD/RAD Chest PA or AP 1V EXAM: RAD Chest PA or AP 1V INDICATION: COUGH. COMPARISON: July 14, 2019. DISCUSSION: Left chest wall cardiac conduction device. Median sternotomy wires. Cardiomediastinal silhouette is normal in size and contour. No infiltrate, effusion, pneumothorax, or edema. IMPRESSION: No acute cardiopulmonary abnormality. John Chandler DO 10/14/19 1004 Thank you for allowing us to participate in the care of your patient.
[2019-10-14 10:47] VITALS: PULSE 70
[2019-10-14] MEDS: Insulin Lispro 100 Unit/ML 3 ML KwikPen SUBCUT SCH ×2 (11:47→17:11)
[2019-10-14] MEDS ORDERED: Bumetanide 1 MG Tab PO SCH (14:15)
--- NOTE | 2019-10-14 14:48 | PN ---
Progress Note for NICOLASA MANUEL Date: 10/14/2019 Room #: VM.214 SUBJECTIVE: This is hospital day #3 on a 69-year-old admitted with chronic obstructive pulmonary disease exacerbation. He had still a lot of coughing spells during the night. He is just out of air. He got an extra neb treatment. He is on the Tessalon Perles. It did not help that much. Otherwise, he is still requiring 1/2 L of oxygen to maintain his sats in the 90% range. He does have oxygen to use at home at night. He is also on CPAP. He has been afebrile. He is on the doxycycline. He is not coughing up anything. His breathing is better other than when he has these coughing spells. The patient is emptying his bladder okay. He has had good urinary output. OBJECTIVE: VITAL SIGNS: His temperature 97.9, pulse 73, blood pressure 138/93, respiratory rate 18, and O2 of 98% on 0.5 L. GENERAL: He is in no acute distress. HEART: Regular rate and rhythm with murmur noted. LUNGS: Lung sounds are clear to auscultation bilaterally without crackles or wheezes. ABDOMEN: Nondistended and nontender. EXTREMITIES: Warm and dry no edema. MENTAL STATUS: Alert and orientated x3. He did get into a couple of coughing spells while I was in there. His face turned red. He could hardly catch his breath until it passed. LABORATORY DATA: Lab work today did show white count of 18.7, hemoglobin 13, and platelets 414. INR 2. Sodium 138, potassium 3.8, chloride 102, bicarb 24, BUN 35, creatinine 1.6, glucose 132. His readings have been under 230. Now, he is getting long-acting and meal insulin at lunch and supper due to the steroids. He is not on insulin at home. His INR is also therapeutic today at 2. ASSESSMENT AND PLAN: 1. Chronic obstructive pulmonary disease exacerbation. The patient with at least moderate chronic obstructive pulmonary disease. He is having still increasing cough. We will repeat his chest x-ray. We will continue the doxycycline. We will try some guaifenesin cough syrup. We will continue 4 times a day nebs in the flutter valve. 2. Chronic systolic heart failure, stable, but with mildly elevated blood pressures. We will increase his Bumex to b.i.d. 3. Type 2 diabetes with hyperglycemia due to steroids. We will keep his insulin the same. 4. Atrial fibrillation, on Coumadin, which is therapeutic today. 5. Chronic kidney disease. Creatinine is at his baseline. 6. Sleep apnea. 7. History of acute myeloid leukemia. 8. History of gastrointestinal bleeding. PLAN: At this point, the patient is still on his IV Solu-Medrol and his scheduled nebs. We will increase his Bumex. We will see how he is doing later today, if he is stable for discharge home versus home tomorrow on oral steroids and doxycycline. We will repeat that chest x-ray and get him weaned off oxygen, but he does have at home with activity if needed. MKA: 10/14/2019 14:18:26 MODL: 10/14/2019 14:43:31 /[id number]
[2019-10-14 14:52] VITALS: BP 119/75
[2019-10-14] MEDS ORDERED: Bumetanide 1 MG Tab PO STA (15:31)
--- NOTE | 2019-10-14 21:42 | DISCH ---
PRIMARY DISCHARGE DIAGNOSES: 1. Acute chronic obstructive pulmonary disease exacerbation with moderate chronic obstructive pulmonary disease. 2. Chronic systolic heart failure, stable, without exacerbation. 3. Type 2 diabetes with hyperglycemia due to steroids. 4. Atrial fibrillation, on Coumadin. He is paced with rate controlled. 5. Chronic kidney disease, creatinine at baseline 1.6 on discharge. 6. Obstructive sleep apnea. He uses continuous positive airway pressure at home but did not have it here. 7. Remote history of acute myeloid leukemia. 8. History of peptic ulcer disease and gastrointestinal bleeding. 9. Obesity. REASON FOR ADMISSION: On the date of admission, this 69-year-old male with previous admissions for COPD exacerbation, came into the clinic with a lot of coughing and short of breath for the last several days. HOSPITAL COURSE: The patient was started on IV steroids and oral doxycycline. Chest x-ray did not show any infiltrates. He still had significant coughing. He was on scheduled nebulizers. We repeated his x-ray today, which did not show any new infiltrates. He was afebrile. White count did increase, but this was suspected to be due to his steroids. We then tried some guaifenesin and dextromethorphan cough syrup, which improved his cough, and overall, he was breathing better. He was weaned off oxygen, which he does have at home to use portable if needed. He uses his CPAP at night. Therefore, he was feeling better and hoping to be discharged. It was felt he was medically stable for discharge and could go on oral steroids and oral doxycycline. Blood sugars at times were up to 300. Initially, he was given Lantus 10 units at night and even some meal insulin, but he did not have needles or anything at home to check blood sugars, and it was felt that they would improve once he is on less steroids, and it is stopped. Otherwise, we did give him initially IV Lasix instead of the Bumex. He had -2.2 L. His proBNP was elevated to 9455. His troponin was negative, but he was not having any increased fluid or edema. Blood pressures were not elevated, actually running lower at times. We did then go to 0.5 b.i.d. He had been on higher doses of Bumex, but due to renal insufficiency over the last couple of months, Cardiology had decreased him to 0.5 daily. DISCHARGE PLANS AND INSTRUCTIONS: The patient will continue on the 0.5 daily of Bumex. He will be on the same doses of Coumadin. He did get an extra 10 mg dose on the , which he normally takes once a week and 7.5 the rest of the week. Discharging hemoglobin was 2.0. He will be on albuterol nebs 4 times a day until better and then p.r.n. He had not been using them at home. He will be on the guaifenesin cough syrup. He will be on doxycycline 100 mg twice daily for 5 more days and prednisone 20 mg daily for 5 more days. We will send home the flutter valve. He will see me in the clinic if needed; otherwise, he has his regular visits in November. LABORATORY DATA: All lab work has been previously on file for Cardiology and the [facility]. PHYSICAL EXAMINATION: His exam was performed in my progress note today. TIME SPENT: Greater than 30 minutes was spent on this discharge process. MKA: 10/14/2019 17:25:17 MODL: 10/14/2019 21:33:57 /[id number]
[2019-10-15] MEDS ORDERED: Bumetanide 1 MG Tab PO SCH (08:00)
[2019-10-17] MEDS ORDERED: Warfarin 5 MG Tab PO SCH (20:00)
== END 2019-10-14 17:40 | disposition home or self-care (01) | DRG 191 ==
LOC: VM.MS 11:39
PROVIDERS: ADMIT Internal Medicine; ATTEND Internal Medicine
DX: J44.1 Chronic obstructive pulmonary disease with (acute) exacerbation (principal); I13.0 Hypertensive heart and chronic kidney disease with heart failure and stage 1 through stage 4 chronic kidney disease, or unspecified chronic kidney disease; I50.22 Chronic systolic (congestive) heart failure; N18.9 Chronic kidney disease, unspecified; E11.65 Type 2 diabetes mellitus with hyperglycemia; T38.0X5A Adverse effect of glucocorticoids and synthetic analogues, initial encounter; G47.33 Obstructive sleep apnea (adult) (pediatric); E66.9 Obesity, unspecified; I27.20 Pulmonary hypertension, unspecified; E11.22 Type 2 diabetes mellitus with diabetic chronic kidney disease; I48.91 Unspecified atrial fibrillation; Z99.81 Dependence on supplemental oxygen; Z85.6 Personal history of leukemia; Z88.0 Allergy status to penicillin; Z79.01 Long term (current) use of anticoagulants; Z88.8 Allergy status to other drugs, medicaments and biological substances; Z90.89 Acquired absence of other organs; Z87.891 Personal history of nicotine dependence
CPT/HCPCS: 36415; 51798; 71045; 80048; 80053; 82962; 83880; 84484; 85025; 85610; 93005; 94640; 94667; 94668; 94760; A9270-GY; J1650; J1815-GY; J1940; J2920; J7613-GY; J7620-GY

== ENCOUNTER 2021-07-02 13:22 | Emergency (ER) | payer MEDICARE, BC ==
--- NOTE | 2021-07-02 13:46 | EDM.PDOC ---
ED HPI GENERAL MEDICAL PROBLEM - General Chief Complaint: Respiratory Problem Stated Complaint: sob Time Seen by Provider: 07/02/21 13:46 Source of Information: Reports: Patient History Limitations: Reports: No Limitations - History of Present Illness INITIAL COMMENTS - FREE TEXT/NARRATIVE: Patient comes emergency department today from the [facility] with complaints of shortness of breath. Patient has a history of AML in remission hypertension aortic stenosis diastolic congestive heart failure pulmonary hypertension PAT cardiomyopathy COPD JACOB AICD pacemaker. Since Thursday he has had increasing pretty much constant shortness of breath. He has had a dry hacking nonproductive cough. No fever no chills. He has had no pain in his chest no pressure or radiation. No weakness dizziness lightheadedness. No palpitations. No syncope. No abdominal pain no nausea or vomiting. No hematuria dysuria urinary frequency. No black or tarry stools. He does have his Covid vaccine. He has been using his inhalers at home without much improvement. He has had no increase of sputum. No more sputum purulence. He does not remember the last time that he had steroids for a COPD exacerbation this is most likely been "years". - Related Data Allergies Allergy/AdvReac Type Severity Reaction Status Date / Time Penicillins Allergy Unknown Hives Verified 07/02/21 13:52 lisinopril AdvReac Unknown Cough Verified 07/02/21 13:52 Home Meds: Home Meds Albuterol [IJD: Ventolin HFA] 1 - 2 puff INH Q4H PRN 05/20/16 [History] Metoprolol Succinate [Toprol XL 100mg] 200 mg PO DAILY 05/20/16 [History] Tiotropium Br/Olodaterol HCl [Stiolto Respimat Inhal [place]] 2 puff PO DAILY 10/12/17 [History] Warfarin [Coumadin] 7.5 mg PO SUTUWETHFRSA@20 10/12/17 [History] Bumetanide [Bumex] 0.5 mg PO DAILY 07/14/19 [History] Pantoprazole Sodium [Protonix] 40 mg PO DAILY 07/14/19 [History] allopurinoL [Zyloprim] 300 mg PO DAILY 07/14/19 [History] Losartan [Cozaar] 50 mg PO DAILY 10/12/19 [History] Umeclidinium Brm/Vilanterol Tr [Anoro Ellipta 62.5-25 MCG] 1 puff INH DAILY 10/12/19 [History] Albuterol [Proventil Neb Soln] 2.5 mg NEB QID neb 10/14/19 [Rx] Dextromethorphan/guaiFENesin [Robitussin DM] 10 ml PO Q4H PRN #100 ml 10/14/19 [Rx] Doxycycline [Vibramycin] 100 mg PO BID cap 10/14/19 [Rx] Warfarin [Coumadin] 10 mg PO MO@20 #0 10/14/19 [Rx] predniSONE [Prednisone] 20 mg PO DAILY #5 tablet 10/14/19 [Rx] Doxycycline Hyclate 100 mg PO BID #14 tablet. 07/02/21 [Rx] predniSONE [Prednisone] 40 mg PO DAILY 4 Days #8 tablet 07/02/21 [Rx] Past Medical History HEENT History: Reports: Hard of Hearing, Impaired Vision Other HEENT History: Wears hearing aides and glasses Cardiovascular History: Reports: Afib, Cardiomyopathy, Heart Failure, Heart Valve Replacement, Hypertension, Pulmonary Hypertension Respiratory History: Reports: COPD, SOB Gastrointestinal History: Reports: GI Bleed Genitourinary History: Reports: Acute Renal Failure Musculoskeletal History: Reports: Arthritis Psychiatric History: Reports: None Hematologic History: Reports: Other (See Below) Other Hematologic History: History of Leukemia with stem cell transplant in 2008 Oncologic (Cancer) History: Reports: Leukemia - Infectious Disease History Infectious Disease History: Reports: Chicken Pox - Past Surgical History Head Surgeries/Procedures: Reports: None Musculoskeletal Surgical History: Reports: None Oncologic Surgical History: Reports: None Social & Family History - Family History Family Medical History: No Pertinent Family History - Caffeine Use Caffeine Use: Reports: Coffee ED ROS GENERAL - Review of Systems Review Of Systems: Comprehensive ROS is negative, except as noted in HPI. ED EXAM, GENERAL - Physical Exam Exam: See Below Free Text/Narrative:: The patient when I enter the room is sitting at the side of the bed in a ofelia itripod position and appears to be hyperventilating primarily through the mouth. He is in no distress. He is able to only speak in 4-6 word sentences. No audible wheezing or congestion. He is alert appropriate. Exam Limited By: No Limitations General Appearance: Alert, WD/WN, Anxious, Mild Distress Eye Exam: Bilateral Eye: EOMI, PERRL Ears: Normal External Exam Nose: Normal Inspection Throat/Mouth: Normal Inspection, Normal Lips Head: Atraumatic, Normocephalic Neck: Supple, Non-Tender, Carotid Bruit Respiratory/Chest: No Accessory Muscle Use, Respiratory Distress (Mild although I wonder if some aspect of this is not partly due to hyperventilation.), Crackles (He has some fine basilar crackles bilaterally no rhonchi no wheezing). No: Rhonchi, Wheezing, Accessory Muscle Use, Retractions Cardiovascular: Normal Peripheral Pulses, Regular Rate, Rhythm, Systolic Murmur (Male) Exam: Deferred Rectal (Males) Exam: Deferred Back Exam: Normal Inspection, Full Range of Motion Extremities: Normal Inspection, Normal Range of Motion, Non-Tender, No Pedal Edema, Normal Capillary Refill Neurological: Alert, Oriented, CN II-XII Intact, Normal Cognition, No Motor/Sensory Deficits Psychiatric: Anxious Skin Exam: Warm, Dry, Intact, Normal Color, No Rash Lymphatic: No Adenopathy Course - Vital Signs Last Recorded V/S: Last Vital Signs Temp 98.1 F 07/02/21 15:50 Pulse 88 07/02/21 15:50 Resp 34 H 07/02/21 15:50 BP 118/78 07/02/21 15:50 Pulse Ox 96 07/02/21 15:50 - Orders/Labs/Meds Orders: Active Orders 24 hr Category Date Time Status Peripheral IV Insertion Adult [OM.PC] Stat Oth 07/02/21 13:46 Ordered Labs: Laboratory Tests 07/02/21 07/02/21 07/02/21 Range/Units 14:00 14:00 14:00 WBC 13.7 H (4.0-10.0) x10^3/uL RBC 5.18 (4.5-6.0) x10^6/uL Hgb 16.5 (14.0-18.0) g/dL Hct 47.6 (40.0-52.0) % MCV 91.9 (78.0-93.0) fL MCH 31.9 (26.0-32.0) pg MCHC 34.7 (32.0-36.0) g/dL RDW Coeff of Todd 16.9 H (10.0-15.0) % Plt Count 406 H (130-400) x10^3/uL Immature Gran % (Auto) 0.30 (0.00-0.43) % Neut % (Auto) 76.0 (50.0-80.0) % Lymph % (Auto) 7.2 L (25.0-50.0) % [place] % (Auto) 15.8 H (2.0-11.0) % Eos % (Auto) 0.3 (0.0-4.0) % Baso % (Auto) 0.4 (0.2-1.2) % Neut # (Auto) 10.4 H (1.8-7.7) x10^3/uL Lymph # (Auto) 1.0 (1.0-4.8) x10^3/uL [place] # (Auto) 2.2 H (0.0-0.8) x10^3/uL Eos # (Auto) 0.0 (0.0-0.5) x10^3/uL Baso # (Auto) 0.1 (0.0-0.2) x10^3/uL Immature Gran # (Auto) 0.04 (0.00-0.07) x10^3/uL PT (9.9-12.5) SEC INR (2.0-3.5) APTT (25.6-32.8) SEC D-Dimer, Quantitative (<=0.58) mg/LFEU Sodium 137 (136-145) mmol/L Potassium 3.8 (3.5-5.1) mmol/L Chloride 102 (98-107) mmol/L Carbon Dioxide 25 (21-32) mmol/L Anion Gap 13.8 (5-15) mmol/L BUN 23 H (7-18) mg/dL Creatinine 1.6 H (0.70-1.30) mg/dL Est Cr Clr Drug Dosing TNP Estimated GFR (MDRD) 43 Glucose 150 H (70-99) mg/dL Lactic Acid 2.4 H* (0.4-2.0) mmol/L Calcium 9.2 (8.5-10.1) mg/dL Corrected Calcium 9.7 (8.5-10.1) mg/dL Total Bilirubin 0.4 (0.2-1.0) mg/dL AST 25 (15-37) U/L ALT 34 (16-63) U/L Alkaline Phosphatase 85 (46-116) U/L Troponin I High Sens 39 (<=76) ng/L C-Reactive Protein 5.6 H (<=0.9) mg/dL NT-Pro-B Natriuret Pep 2940 H (<=125) pg/mL Total Protein 7.8 (6.4-8.2) g/dL Albumin 3.4 (3.4-5.0) g/dL Globulin 4.4 Albumin/Globulin Ratio 0.77 Procalcitonin (0.1-0.50) ng/mL Influenza Type A RNA (NEGATIVE) RSV RNA (INAAT) (NEGATIVE) Influenza Type B RNA (NEGATIVE) SARS-CoV-2 RNA (FAITH) 07/02/21 07/02/21 07/02/21 Range/Units 14:00 14:00 14:00 WBC (4.0-10.0) x10^3/uL RBC (4.5-6.0) x10^6/uL Hgb (14.0-18.0) g/dL Hct (40.0-52.0) % MCV (78.0-93.0) fL MCH (26.0-32.0) pg MCHC (32.0-36.0) g/dL RDW Coeff of Todd (10.0-15.0) % Plt Count (130-400) x10^3/uL Immature Gran % (Auto) (0.00-0.43) % Neut % (Auto) (50.0-80.0) % Lymph % (Auto) (25.0-50.0) % [place] % (Auto) (2.0-11.0) % Eos % (Auto) (0.0-4.0) % Baso % (Auto) (0.2-1.2) % Neut # (Auto) (1.8-7.7) x10^3/uL Lymph # (Auto) (1.0-4.8) x10^3/uL [place] # (Auto) (0.0-0.8) x10^3/uL Eos # (Auto) (0.0-0.5) x10^3/uL Baso # (Auto) (0.0-0.2) x10^3/uL Immature Gran # (Auto) (0.00-0.07) x10^3/uL PT 22.2 H (9.9-12.5) SEC INR 2.0 (2.0-3.5) APTT 33.3 H (25.6-32.8) SEC D-Dimer, Quantitative 0.51 (<=0.58) mg/LFEU Sodium (136-145) mmol/L Potassium (3.5-5.1) mmol/L Chloride (98-107) mmol/L Carbon Dioxide (21-32) mmol/L Anion Gap (5-15) mmol/L BUN (7-18) mg/dL Creatinine (0.70-1.30) mg/dL Est Cr Clr Drug Dosing Estimated GFR (MDRD) Glucose (70-99) mg/dL Lactic Acid (0.4-2.0) mmol/L Calcium (8.5-10.1) mg/dL Corrected Calcium (8.5-10.1) mg/dL Total Bilirubin (0.2-1.0) mg/dL AST (15-37) U/L ALT (16-63) U/L Alkaline Phosphatase (46-116) U/L Troponin I High Sens (<=76) ng/L C-Reactive Protein (<=0.9) mg/dL NT-Pro-B Natriuret Pep (<=125) pg/mL Total Protein (6.4-8.2) g/dL Albumin (3.4-5.0) g/dL Globulin Albumin/Globulin Ratio Procalcitonin <0.05 L (0.1-0.50) ng/mL Influenza Type A RNA (NEGATIVE) RSV RNA (INAAT) (NEGATIVE) Influenza Type B RNA (NEGATIVE) SARS-CoV-2 RNA (FAITH) 07/02/21 07/02/21 Range/Units 14:11 14:11 WBC (4.0-10.0) x10^3/uL RBC (4.5-6.0) x10^6/uL Hgb (14.0-18.0) g/dL Hct (40.0-52.0) % MCV (78.0-93.0) fL MCH (26.0-32.0) pg MCHC (32.0-36.0) g/dL RDW Coeff of Todd (10.0-15.0) % Plt Count (130-400) x10^3/uL Immature Gran % (Auto) (0.00-0.43) % Neut % (Auto) (50.0-80.0) % Lymph % (Auto) (25.0-50.0) % [place] % (Auto) (2.0-11.0) % Eos % (Auto) (0.0-4.0) % Baso % (Auto) (0.2-1.2) % Neut # (Auto) (1.8-7.7) x10^3/uL Lymph # (Auto) (1.0-4.8) x10^3/uL [place] # (Auto) (0.0-0.8) x10^3/uL Eos # (Auto) (0.0-0.5) x10^3/uL Baso # (Auto) (0.0-0.2) x10^3/uL Immature Gran # (Auto) (0.00-0.07) x10^3/uL PT (9.9-12.5) SEC INR (2.0-3.5) APTT (25.6-32.8) SEC D-Dimer, Quantitative (<=0.58) mg/LFEU Sodium (136-145) mmol/L Potassium (3.5-5.1) mmol/L Chloride (98-107) mmol/L Carbon Dioxide (21-32) mmol/L Anion Gap (5-15) mmol/L BUN (7-18) mg/dL Creatinine (0.70-1.30) mg/dL Est Cr Clr Drug Dosing Estimated GFR (MDRD) Glucose (70-99) mg/dL Lactic Acid (0.4-2.0) mmol/L Calcium (8.5-10.1) mg/dL Corrected Calcium (8.5-10.1) mg/dL Total Bilirubin (0.2-1.0) mg/dL AST (15-37) U/L ALT (16-63) U/L Alkaline Phosphatase (46-116) U/L Troponin I High Sens (<=76) ng/L C-Reactive Protein (<=0.9) mg/dL NT-Pro-B Natriuret Pep (<=125) pg/mL Total Protein (6.4-8.2) g/dL Albumin (3.4-5.0) g/dL Globulin Albumin/Globulin Ratio Procalcitonin (0.1-0.50) ng/mL Influenza Type A RNA Negative (NEGATIVE) RSV RNA (INAAT) Positive H (NEGATIVE) Influenza Type B RNA Negative (NEGATIVE) SARS-CoV-2 RNA (FAITH) Cancelled Negative Meds: Medications Discontinued Medications Generic Name Dose Route Start Last Admin Trade Name Freq PRN Reason Stop Dose Admin Albuterol/Ipratropium 3 ml 07/02/21 13:48 07/02/21 14:08 Albuterol/Ipratropium 3.0-0.5 Mg/3 Ml Neb Soln NEB 07/02/21 13:49 3 ml ONETIME ONE Administration Doxycycline Hyclate 100 mg 07/02/21 15:43 07/02/21 15:54 Doxycycline 100 Mg Cap PO 07/02/21 15:44 100 mg ONETIME ONE Administration Methylprednisolone Sodium Succinate 125 mg 07/02/21 14:09 07/02/21 14:14 Methylprednisolone Sodium Succinate 125 Mg/2 Ml Sdv IVPUSH 07/02/21 14:10 125 mg ONETIME ONE Administration Morphine Sulfate 2 mg 07/02/21 14:52 07/02/21 14:56 Morphine 2 Mg/Ml Syringe IVPUSH 07/02/21 14:53 2 mg ONETIME ONE Administration Prednisone 1 packet 07/02/21 15:43 07/02/21 15:54 Take Home: Prednisone 20 Mg, 2 Tab Pack PO 07/02/21 15:44 1 packet ONETIME ONE Administration Sodium Chloride 10 ml 07/02/21 13:48 Sodium Chloride 0.9% 10 Ml Syringe FLUSH ASDIRECTED PRN Keep Vein Open - Radiology Interpretation Free Text/Narrative:: Chest x-ray per radiology bilateral symmetric lung hyperinflation with flattening of the hemidiaphragms. Findings are unchanged from the prior examination suggesting underlying parenchymal emphysema. Cardiomediastinal silhouette is unchanged in size and contour compared to the prior exam - Re-Assessments/Exams Free Text/Narrative Re-Assessment/Exam: 07/02/21 14:24 IV was established. Labs are drawn. Solu-Medrol 125 mg IV push. DuoNeb nebulizer administered. Chest x-ray per radiology no acute findings 07/02/21 14:51 Laboratory evaluation with a normal troponin. proBNP is the lowest its ever been recorded at approximately 2940 His lung sounds are still really good with no crackles heard this time. He is breathing heavily through his mouth but in no distress. INR is just therapeutic. We will try some morphine for air hungar. The patient did have some improvement with it with the DuoNeb nebulizers as well as the morphine. Again he is not in distress he just has some tachypnea. His D-dimer is negative. His proBNP is at the lowest that it has been. He really does not meet the criteria for a COPD exacerbation. His Covid is negative but interestingly is RSV is positive. This could be the cause of his shortness of breath. He is not requiring any oxygen at this time. With some coaching he was able to calm and slow his breathing down I think a lot of this is anxiety with some underlying shortness of breath most likely from COPD as well as his RSV. He does have a nebulizer at home that he can use for as needed shortness of breath and cough. I placed him on prednisone 40 mg a day for the next 5 days. I will also cover with doxycycline if this is a COPD exacerbation. Anything new or worse he is to recheck. He is comfortable with this plan his questions are answered. Departure - Departure Time of Disposition: 16:30 Disposition: Home, Self-Care 01 Clinical Impression: COPD with exacerbation, RSV (respiratory syncytial virus infection) - Discharge Information Prescriptions: Doxycycline Hyclate 100 mg PO BID #14 tablet. predniSONE [Prednisone] 40 mg PO DAILY 4 Days #8 tablet Instructions: Chronic Obstructive Pulmonary Disease, [id number], Respiratory Syncytial Virus Infection, Adult Referrals: Fely Guillen, [Primary Care Provider] - Forms: ED Department Discharge Additional Instructions: Drink plenty of fluids the next few days. Doxycycline 1 tablet twice daily for the next 7 days. First dose given in the ED and RX sent to [facility]. Prednisone, 40mg daily for the next 5 days. Dose for tonight sent home with you take at bedtime. Then 40mg day starting in the early evening of the 07/03/21 for a total of 5 days. Rx sent to [facility]. Use your home nebulizer as needed for SOB and coughing. Return to the ED if new or worsening symptoms. Especially Fever, worsening SOB difficulty breathing. Recheck with PCP in the next 4-6 days if not improving sooner if worse. Sepsis Event Note (ED) - Focused Exam Vital Signs: Vital Signs Temp Pulse Resp BP Pulse Ox 07/02/21 15:50 98.1 F 88 34 H 118/78 96 07/02/21 13:25 98.0 F 70 36 H 110/60 95 - My Orders Last 24 Hours: My Active Orders 07/02/21 13:46 Peripheral IV Insertion Adult [OM.PC] Stat - Assessment/Plan Last 24 Hours: My Active Orders 07/02/21 13:46 Peripheral IV Insertion Adult [OM.PC] Stat
[2021-07-02] MEDS ORDERED: Sodium Chloride 0.9% 10 ML Syringe FLUSH PRN (13:48)
[2021-07-02] MEDS ORDERED: Albuterol/Ipratropium 3.0-0.5 MG/3 ML Neb Soln NEB ONE (13:48)
[2021-07-02] MEDS ORDERED: methylPREDNISolone Sodium Succinate 125 MG/2 ML SDV IVPUSH ONE (14:09)
--- NOTE | 2021-07-02 14:22 | CR ---
[id number] RAD/RAD Chest PA And Lateral EXAM: RAD Chest PA And Lateral INDICATION: SHORT OF BREATH. COMPARISON: 2019. DISCUSSION/IMPRESSION: Cardiomediastinal silhouette is unchanged in size and contour compared to the prior examination. Bilateral symmetric lung hyperinflation with flattening of the hemidiaphragms. Findings are unchanged from the prior examination, suggesting underlying parenchymal emphysema. Correlate for clinical signs of chronic obstructive pulmonary disease. Left chest wall cardiac conduction device in place. Median sternotomy. Prosthetic heart valve. Those findings are similar to the prior examination. Irineo Kiran MD 07/02/21 [id number] Thank you for allowing us to participate in the care of your patient.
--- NOTE | 2021-07-02 14:23 | PCM.EKG ---
#1 Interpretation EKG Date: 07/02/21 Time: 14:02 Rhythm: Other (paced rhythm) Rate (Beats/Min): 70 QRS: RBBB ST-T: Normal QT: Normal Comparison: No Change
[2021-07-02 14:42] LABS: CHLORIDE,CL 102 mmol/L (98-107); SODIUM,NA 137 mmol/L (136-145)
[2021-07-02 14:43] LABS: ANION GAP 13.8 mmol/L (5-15)
[2021-07-02 14:46] LABS: PTT,PARTIAL THROMBOPLSTIN TIME 33.3 SEC (25.6-32.8)
[2021-07-02] MEDS ORDERED: Morphine 2 MG/ML SYRINGE IVPUSH ONE (14:52)
[2021-07-02 15:13] LABS: CORONAVIRUS COVID-19 NAA NEGATIVE (NEGATIVE); RESPIRATORY SYNCYTIAL VIR NAA POSITIVE (NEGATIVE)
[2021-07-02] MEDS ORDERED: Doxycycline 100 MG Cap PO ONE (15:43)
[2021-07-02] MEDS ORDERED: Take Home: predniSONE 20 MG, 2 Tab Pack PO ONE (15:43)
[2021-07-02 16:56] VITALS: BP 118/78; PULSE 88
== END 2021-07-02 16:01 | disposition home or self-care (01) ==
LOC: VM.ED 13:22
DX: J44.1 Chronic obstructive pulmonary disease with (acute) exacerbation (principal); B97.4 Respiratory syncytial virus as the cause of diseases classified elsewhere; I48.91 Unspecified atrial fibrillation; I11.0 Hypertensive heart disease with heart failure; I50.9 Heart failure, unspecified; Z88.0 Allergy status to penicillin; Z88.8 Allergy status to other drugs, medicaments and biological substances; Z79.899 Other long term (current) drug therapy; Z20.822 Contact with and (suspected) exposure to COVID-19
CPT/HCPCS: 0241U; 36415; 71046; 80053; 83605; 83880; 84145; 84484; 85025; 85379; 85610; 85730; 86140; 93005; 93010; 94640; 96374; 96375; 99284; 99285-25; A9270-GY; J2270; J2930; J7512; J7620-GY

== ENCOUNTER 2022-01-30 16:19 | Emergency (ER) | payer MEDICARE, BC ==
[2022-01-30] MEDS ORDERED: Furosemide 40 MG/4 ML VIAL IV ONE (16:40)
[2022-01-30 17:45] LABS: CHLORIDE,CL 103 mmol/L (98-107); SODIUM,NA 137 mmol/L (136-145)
[2022-01-30 17:46] LABS: ANION GAP 13.8 mmol/L (5-15)
[2022-01-30] MEDS ORDERED: cefTRIAXone 1 GM Vial IVPUSH ONE (18:10)
[2022-01-30 18:12] VITALS: PULSE 70
[2022-01-30 19:25] LABS: CORONAVIRUS COVID-19 NAA NEGATIVE (NEGATIVE)
[2022-01-30 20:02] VITALS: BP 100/57
== END 2022-01-30 20:05 | disposition home or self-care (01) ==
LOC: VM.ED 16:19
DX: J44.9 Chronic obstructive pulmonary disease, unspecified (principal); I11.0 Hypertensive heart disease with heart failure; I50.9 Heart failure, unspecified; E11.9 Type 2 diabetes mellitus without complications; E78.00 Pure hypercholesterolemia, unspecified; E66.9 Obesity, unspecified; Z68.34 Body mass index [BMI] 34.0-34.9, adult; Z88.0 Allergy status to penicillin; Z88.8 Allergy status to other drugs, medicaments and biological substances; Z79.01 Long term (current) use of anticoagulants; Z79.899 Other long term (current) drug therapy; Z87.891 Personal history of nicotine dependence; Z20.822 Contact with and (suspected) exposure to COVID-19
CPT/HCPCS: 0240U; 36415; 71046; 80053; 81001; 82550; 83605; 83615; 83880; 84145; 84484; 85008; 85025; 85046; 85379; 85610; 86140; 87040; 93005; 93010; 96374; 96375; 99284; 99285-25; J0696; J1940

== ENCOUNTER 2022-02-28 06:25 | Day surgery (SDC) | payer MEDICARE, BC ==
[~2022-02-28 06:25] MED LIST: Lactated Ringers 1,000 ML IV SCH
[2022-02-28] MEDS ORDERED: Propofol 200 MG/20 ML SDV ONE ×2 (07:34→07:55)
[2022-02-28] MEDS ORDERED: fentaNYL 100 MCG/2 ML SDV ONE (07:35)
[2022-02-28 09:23] VITALS: BP 113/78; PULSE 78
== END 2022-02-28 09:45 | disposition home or self-care (01) ==
LOC: VM.SDS 06:25
PROVIDERS: ATTEND Student in an Organized Health Care Education/Training Program
DX: Z12.11 Encounter for screening for malignant neoplasm of colon (principal); D12.2 Benign neoplasm of ascending colon; D12.3 Benign neoplasm of transverse colon; D12.5 Benign neoplasm of sigmoid colon; I48.0 Paroxysmal atrial fibrillation; I13.0 Hypertensive heart and chronic kidney disease with heart failure and stage 1 through stage 4 chronic kidney disease, or unspecified chronic kidney disease; E03.9 Hypothyroidism, unspecified; E11.22 Type 2 diabetes mellitus with diabetic chronic kidney disease; G47.33 Obstructive sleep apnea (adult) (pediatric); N18.30 Chronic kidney disease, stage 3 unspecified; I50.32 Chronic diastolic (congestive) heart failure; J44.9 Chronic obstructive pulmonary disease, unspecified; E78.1 Pure hyperglyceridemia; E66.9 Obesity, unspecified; Z68.33 Body mass index [BMI] 33.0-33.9, adult; Z95.2 Presence of prosthetic heart valve; Z98.890 Other specified postprocedural states; Z87.891 Personal history of nicotine dependence; Z79.890 Hormone replacement therapy; Z79.899 Other long term (current) drug therapy; Z79.51 Long term (current) use of inhaled steroids; Z86.010 Personal history of colon polyps; Z79.01 Long term (current) use of anticoagulants
CPT/HCPCS: 00812; 36415; 82947; 85610; J2704; J3010; J7120

== ENCOUNTER 2024-04-04 03:30 | Emergency (ER) | payer MEDICARE, BC ==
[2024-04-04] MEDS ORDERED: Sodium Chloride 0.9% 10 ML Syringe FLUSH PRN (03:48)
[2024-04-04] MEDS: Albuterol/Ipratropium 3.0-0.5 MG/3 ML Neb Soln NEB ONE (03:52)
[2024-04-04 04:05] LABS: BASOPHILS PERCENT AUTO 0.3 % (0.2-1.2); EOSINOPHILS ABSOLUTE AUTO 0.1 x10^3/uL (0.0-0.5); EOSINOPHILS PERCENT AUTO 0.9 % (0.0-4.0); HEMATOCRIT 44.2 % (40.0-52.0); HEMOGLOBIN 15.5 g/dL (14.0-18.0); IMMATURE GRAN ABSOLUTE AUTO 0.06 x10^3/uL (0.00-0.07); LYMPHOCYTES ABSOLUTE AUTO 1.1 x10^3/uL (1.0-4.8); LYMPHOCYTES PERCENT AUTO 8.8 % (25.0-50.0); MEAN CORPUSCULAR HEMOGLOBIN 34.4 pg (26.0-32.0); MEAN CORPUSCULAR HGB CONC 35.1 g/dL (32.0-36.0); MONOCYTES ABSOLUTE AUTO 1.5 x10^3/uL (0.0-0.8); MONOCYTES PERCENT AUTO 11.7 % (2.0-11.0); NEUTROPHILS ABSOLUTE AUTO 9.9 x10^3/uL (1.8-7.7); NEUTROPHILS PERCENT AUTO 77.8 % (50.0-80.0); PLATELET COUNT,PLT 352 x10^3/uL (130-400); RED BLOOD CELL COUNT 4.51 x10^6/uL (4.5-6.0); WHITE BLOOD CELL COUNT,WBC 12.7 x10^3/uL (4.0-10.0)
[2024-04-04] MEDS: methylPREDNISolone Sodium Succinate 125 MG/2 ML SDV IVPUSH ONE (04:10)
[2024-04-04] MEDS: cefTRIAXone 1 GM Vial IVPUSH ONE (04:12)
[2024-04-04 04:31] VITALS: BP 111/77
[2024-04-04 04:31] LABS: A/G RATIO 0.62; ALBUMIN 3.1 g/dL (3.4-5.0); BILIRUBIN TOTAL 0.7 mg/dL (0.2-1.0); C-REACTIVE PROTEIN 6.22 mg/dL (<=0.50); CALCIUM 9.3 mg/dL (8.5-10.1); CREATININE 2.1 mg/dL (0.70-1.30); POTASSIUM,K 3.9 mmol/L (3.5-5.1); PROTEIN TOTAL,TP 8.1 g/dL (6.4-8.2)
[2024-04-04 04:32] LABS: ANION GAP 15.9 mmol/L (5-15); EST CRCL DRUG DOSING (CG) 30.39 mL/min
[2024-04-04 04:34] LABS: PRO B-TYPE NATRIUR PEPT,BNPPRO 7472 pg/mL (<=450)
[2024-04-04] MEDS: Doxycycline Monohydrate 100 MG Cap PO ONE (04:44)
[2024-04-04 05:22] VITALS: PULSE 72
== END 2024-04-04 05:00 | disposition home or self-care (01) ==
LOC: VM.ED 03:30
DX: J44.9 Chronic obstructive pulmonary disease, unspecified (principal); I13.0 Hypertensive heart and chronic kidney disease with heart failure and stage 1 through stage 4 chronic kidney disease, or unspecified chronic kidney disease; I50.42 Chronic combined systolic (congestive) and diastolic (congestive) heart failure; N18.32 Chronic kidney disease, stage 3b; Z88.0 Allergy status to penicillin; Z88.8 Allergy status to other drugs, medicaments and biological substances; Z79.51 Long term (current) use of inhaled steroids; Z79.01 Long term (current) use of anticoagulants; Z79.899 Other long term (current) drug therapy
CPT/HCPCS: 71045; 80053; 83880; 84484; 85025; 86140; 93005; 94640; 96374; 96375; 99285; A9270; J0696; J2919; 93010; 99284; J7620-GY

== ENCOUNTER 2025-01-07 19:54 | Emergency (ER) | payer MEDICARE, BC ==
[2025-01-07 20:14] LABS: BASOPHILS PERCENT AUTO 0.1 % (0.2-1.2); EOSINOPHILS ABSOLUTE AUTO 0.3 x10^3/uL (0.0-0.5); EOSINOPHILS PERCENT AUTO 1.8 % (0.0-4.0); HEMATOCRIT 35.3 % (40.0-52.0); HEMOGLOBIN 11.9 g/dL (14.0-18.0); IMMATURE GRAN ABSOLUTE AUTO 0.19 x10^3/uL (0.00-0.07); LYMPHOCYTES ABSOLUTE AUTO 0.9 x10^3/uL (1.0-4.8); MEAN CORPUSCULAR HEMOGLOBIN 33.3 pg (26.0-32.0); MEAN CORPUSCULAR HGB CONC 33.7 g/dL (32.0-36.0); MEAN CORPUSCULAR VOLUME 98.9 fL (78.0-93.0); MONOCYTES ABSOLUTE AUTO 1.9 x10^3/uL (0.0-0.8); MONOCYTES PERCENT AUTO 13.4 % (2.0-11.0); NEUTROPHILS ABSOLUTE AUTO 10.9 x10^3/uL (1.8-7.7); NEUTROPHILS PERCENT AUTO 77.4 % (50.0-80.0); PLATELET COUNT,PLT 552 x10^3/uL (130-400); RED BLOOD CELL COUNT 3.57 x10^6/uL (4.5-6.0); WHITE BLOOD CELL COUNT,WBC 14.1 x10^3/uL (4.0-10.0)
[2025-01-07] MEDS: Albuterol/Ipratropium 3.0-0.5 MG/3 ML Neb Soln NEB ONE (20:15)
[2025-01-07] MEDS: Furosemide 100 MG/10 ML SDV IV ONE (20:23)
[2025-01-07 20:47] LABS: A/G RATIO 0.53; ALANINE AMINOTRANSFERASE,ALT 35 U/L (16-63); ALBUMIN 2.8 g/dL (3.4-5.0); ALKALINE PHOSPHATASE 188 U/L (46-116); ANION GAP 12.6 mmol/L (5-15); ASPARTATE AMNIOTRANSFERASE,AST 35 U/L (15-37); BLOOD UREA NITROGEN,BUN 28 mg/dL (7-18); CALCIUM 8.6 mg/dL (8.5-10.1); CARBON DIOXIDE,CO2 27 mmol/L (21-32); CHLORIDE,CL 100 mmol/L (98-107); CREATININE 1.5 mg/dL (0.70-1.30); ESTIMATED GFR 48 mL/min (>=60); GLUCOSE RANDOM 163 mg/dL (70-99); POTASSIUM,K 3.6 mmol/L (3.5-5.1); PRO B-TYPE NATRIUR PEPT,BNPPRO 7651 pg/mL (<=450); PROTEIN TOTAL,TP 8.1 g/dL (6.4-8.2); SODIUM,NA 136 mmol/L (136-145)
[2025-01-07 20:56] LABS: APPEARANCE,URINE CLEAR (CLEAR); BILIRUBIN,URINE NEGATIVE (NEGATIVE); COLOR,URINE YELLOW (YELLOW); GLUCOSE,URINE 500 mg/dL (NEGATIVE); KETONES,URINE NEGATIVE (NEGATIVE); LEUKOCYTE ESTERASE,URINE NEGATIVE (NEGATIVE); NITRITE,URINE NEGATIVE (NEGATIVE); OCCULT BLOOD,URINE TRACE-INTACT (NEGATIVE); PROTEIN,URINE NEGATIVE (NEGATIVE)
[2025-01-07 21:04] LABS: BACTERIA,URINE RARE /HPF (NOT SEEN); RBC,URINE 0-5 /HPF (NOT SEEN); SQUAMOUS EPITHELIAL CELLS,UR RARE /HPF (NOT SEEN); WBC,URINE 0-5 /HPF (NOT SEEN)
[2025-01-07] MEDS: Iopamidol 755 Mg/ML 100 ML Bottle IVPUSH ONE (21:34)
[2025-01-07 21:46] VITALS: PULSE 70
[2025-01-07 22:38] VITALS: BP 108/62
== END 2025-01-07 23:30 | disposition short-term general hospital (02) ==
LOC: VM.ED 19:54
DX: I11.0 Hypertensive heart disease with heart failure (principal); I50.33 Acute on chronic diastolic (congestive) heart failure; R06.03 Acute respiratory distress; E11.9 Type 2 diabetes mellitus without complications; E66.9 Obesity, unspecified; Z95.4 Presence of other heart-valve replacement; Z88.8 Allergy status to other drugs, medicaments and biological substances; Z88.1 Allergy status to other antibiotic agents; Z79.899 Other long term (current) drug therapy
CPT/HCPCS: 51702; 71045; 71275; 80053; 81001; 83605; 83880; 84484; 85025; 85379; 86140; 87040; 93005; 93010; 94640; 96374; 99284; 99285-25; A9270-GY; J1940; Q9967